=== PATIENT | male | born 1955 | race Caucasian/White ===

== ENCOUNTER → 2020-08-06 | Outpatient (CLI) | payer BC ==
[~2020-08-06] MED LIST: ALEVE220 MG PO; KEFLEX500 MG; TRAMADOL PO; TYLENOL WITH C1 EACH PO; ULTRACET TABLE1 EACH
== END ==
LOC: WCC 08:37
PROVIDERS: ATTEND Plastic Surgery
DX: I87.311 Chronic venous hypertension (idiopathic) with ulcer of right lower extremity (principal); L97.811 Non-pressure chronic ulcer of other part of right lower leg limited to breakdown of skin; R60.0 Localized edema; I87.2 Venous insufficiency (chronic) (peripheral); G89.29 Other chronic pain; E66.3 Overweight; G25.81 Restless legs syndrome; G47.33 Obstructive sleep apnea (adult) (pediatric); W18.09XA Striking against other object with subsequent fall, initial encounter

== ENCOUNTER → 2020-08-08 | Outpatient (CLI) | payer BC | LOC: WCC 08:28 | PROVIDERS: ATTEND Plastic Surgery | DX: I87.311 Chronic venous hypertension (idiopathic) with ulcer of right lower extremity (principal); L97.811 Non-pressure chronic ulcer of other part of right lower leg limited to breakdown of skin; R60.0 Localized edema; I87.2 Venous insufficiency (chronic) (peripheral); G89.29 Other chronic pain; G47.33 Obstructive sleep apnea (adult) (pediatric); G25.81 Restless legs syndrome; E66.3 Overweight; E03.9 Hypothyroidism, unspecified; W18.09XA Striking against other object with subsequent fall, initial encounter ==

== ENCOUNTER → 2020-08-10 | Outpatient (CLI) | payer BC | LOC: WCC 08:23 | PROVIDERS: ATTEND Plastic Surgery | DX: I87.311 Chronic venous hypertension (idiopathic) with ulcer of right lower extremity (principal); L97.811 Non-pressure chronic ulcer of other part of right lower leg limited to breakdown of skin; I87.2 Venous insufficiency (chronic) (peripheral); R60.0 Localized edema; G89.29 Other chronic pain; E03.9 Hypothyroidism, unspecified; G47.33 Obstructive sleep apnea (adult) (pediatric); G25.81 Restless legs syndrome; E66.3 Overweight; W18.09XA Striking against other object with subsequent fall, initial encounter ==

== ENCOUNTER → 2020-08-13 | Outpatient (CLI) | payer BC | LOC: WCC 09:05 | PROVIDERS: ATTEND Plastic Surgery | DX: I87.311 Chronic venous hypertension (idiopathic) with ulcer of right lower extremity (principal); L97.811 Non-pressure chronic ulcer of other part of right lower leg limited to breakdown of skin; I87.2 Venous insufficiency (chronic) (peripheral); R60.0 Localized edema; G89.29 Other chronic pain; G47.33 Obstructive sleep apnea (adult) (pediatric); G25.81 Restless legs syndrome; E66.3 Overweight; W18.09XA Striking against other object with subsequent fall, initial encounter | CPT/HCPCS: 87071; 87075; 87186; 87205 ==

== ENCOUNTER → 2020-08-15 | Outpatient (CLI) | payer BC | LOC: WCC 08:21 | PROVIDERS: ATTEND Plastic Surgery | DX: I87.311 Chronic venous hypertension (idiopathic) with ulcer of right lower extremity (principal); L97.811 Non-pressure chronic ulcer of other part of right lower leg limited to breakdown of skin; I87.2 Venous insufficiency (chronic) (peripheral); R60.0 Localized edema; G89.29 Other chronic pain; E03.9 Hypothyroidism, unspecified; G47.33 Obstructive sleep apnea (adult) (pediatric); G25.81 Restless legs syndrome; E66.3 Overweight; W18.09XA Striking against other object with subsequent fall, initial encounter ==

== ENCOUNTER → 2020-08-22 | Outpatient (CLI) | payer BC ==
[~2020-08-22] MED LIST changes: +LIDOCAINE VISC 2% SOLN 15 ML UDC ONE; +LIDOCAINE/PRILOCAINE 2.5-2.5% KIT ONE; +MINERAL OIL/PETROLAT/GLYCERI 6OZ BTL ONE; +TRYPSIN/BALSAM PERU/CASTOR OIL ONE
== END ==
LOC: WCC 09:53
PROVIDERS: ATTEND Plastic Surgery
DX: I87.311 Chronic venous hypertension (idiopathic) with ulcer of right lower extremity (principal); L97.811 Non-pressure chronic ulcer of other part of right lower leg limited to breakdown of skin; I87.2 Venous insufficiency (chronic) (peripheral); R60.0 Localized edema; G89.29 Other chronic pain; A49.02 Methicillin resistant Staphylococcus aureus infection, unspecified site; G47.33 Obstructive sleep apnea (adult) (pediatric); G25.81 Restless legs syndrome; E66.3 Overweight; E03.9 Hypothyroidism, unspecified; W18.09XA Striking against other object with subsequent fall, initial encounter

== ENCOUNTER → 2020-08-24 | Outpatient (CLI) | payer BC ==
[~2020-08-24] MED LIST changes: -LIDOCAINE VISC 2% SOLN 15 ML UDC ONE; -LIDOCAINE/PRILOCAINE 2.5-2.5% KIT ONE; -MINERAL OIL/PETROLAT/GLYCERI 6OZ BTL ONE; -TRYPSIN/BALSAM PERU/CASTOR OIL ONE
== END ==
LOC: WCC 07:58
PROVIDERS: ATTEND Plastic Surgery
DX: I87.311 Chronic venous hypertension (idiopathic) with ulcer of right lower extremity (principal); L97.811 Non-pressure chronic ulcer of other part of right lower leg limited to breakdown of skin; I87.2 Venous insufficiency (chronic) (peripheral); R60.0 Localized edema; G89.29 Other chronic pain; A49.02 Methicillin resistant Staphylococcus aureus infection, unspecified site; G47.33 Obstructive sleep apnea (adult) (pediatric); G25.81 Restless legs syndrome; E66.3 Overweight; E03.9 Hypothyroidism, unspecified; W18.09XA Striking against other object with subsequent fall, initial encounter

== ENCOUNTER → 2020-08-27 | Outpatient (CLI) | payer BC | LOC: WCC 14:14 | PROVIDERS: ATTEND Plastic Surgery | DX: I87.311 Chronic venous hypertension (idiopathic) with ulcer of right lower extremity (principal); L97.811 Non-pressure chronic ulcer of other part of right lower leg limited to breakdown of skin; I87.2 Venous insufficiency (chronic) (peripheral); R60.0 Localized edema; G89.29 Other chronic pain; A49.02 Methicillin resistant Staphylococcus aureus infection, unspecified site; G47.33 Obstructive sleep apnea (adult) (pediatric); G25.81 Restless legs syndrome; E03.9 Hypothyroidism, unspecified; E66.3 Overweight; W18.09XA Striking against other object with subsequent fall, initial encounter ==

== ENCOUNTER → 2020-08-29 | Outpatient (CLI) | payer BC | LOC: WCC 08:27 | PROVIDERS: ATTEND Plastic Surgery | DX: I87.311 Chronic venous hypertension (idiopathic) with ulcer of right lower extremity (principal); L97.811 Non-pressure chronic ulcer of other part of right lower leg limited to breakdown of skin; R60.0 Localized edema; G89.29 Other chronic pain; I87.2 Venous insufficiency (chronic) (peripheral); G47.33 Obstructive sleep apnea (adult) (pediatric); G25.81 Restless legs syndrome; E03.9 Hypothyroidism, unspecified; A49.02 Methicillin resistant Staphylococcus aureus infection, unspecified site; E66.3 Overweight; W18.09XA Striking against other object with subsequent fall, initial encounter ==

== ENCOUNTER → 2020-08-31 | Outpatient (CLI) | payer BC | LOC: WCC 09:28 | PROVIDERS: ATTEND Plastic Surgery | DX: I87.311 Chronic venous hypertension (idiopathic) with ulcer of right lower extremity (principal); L97.811 Non-pressure chronic ulcer of other part of right lower leg limited to breakdown of skin; I87.2 Venous insufficiency (chronic) (peripheral); R60.0 Localized edema; G89.29 Other chronic pain; A49.02 Methicillin resistant Staphylococcus aureus infection, unspecified site; G25.81 Restless legs syndrome; G47.33 Obstructive sleep apnea (adult) (pediatric); E03.9 Hypothyroidism, unspecified; E66.3 Overweight; W18.09XA Striking against other object with subsequent fall, initial encounter ==

== ENCOUNTER → 2020-09-03 | Outpatient (CLI) | payer BC | LOC: WCC 08:52 | PROVIDERS: ATTEND Plastic Surgery | DX: I87.311 Chronic venous hypertension (idiopathic) with ulcer of right lower extremity (principal); L97.811 Non-pressure chronic ulcer of other part of right lower leg limited to breakdown of skin; I87.2 Venous insufficiency (chronic) (peripheral); R60.0 Localized edema; G89.29 Other chronic pain; A49.02 Methicillin resistant Staphylococcus aureus infection, unspecified site; G47.33 Obstructive sleep apnea (adult) (pediatric); E03.9 Hypothyroidism, unspecified; G25.81 Restless legs syndrome; E66.3 Overweight; W18.09XA Striking against other object with subsequent fall, initial encounter ==

== ENCOUNTER → 2020-09-05 | Outpatient (CLI) | payer BC | LOC: WCC 08:15 | PROVIDERS: ATTEND Plastic Surgery | DX: I87.311 Chronic venous hypertension (idiopathic) with ulcer of right lower extremity (principal); L97.811 Non-pressure chronic ulcer of other part of right lower leg limited to breakdown of skin; I87.2 Venous insufficiency (chronic) (peripheral); R60.0 Localized edema; G89.29 Other chronic pain; G47.33 Obstructive sleep apnea (adult) (pediatric); E03.9 Hypothyroidism, unspecified; G25.81 Restless legs syndrome; E66.3 Overweight; A49.02 Methicillin resistant Staphylococcus aureus infection, unspecified site; W18.09XA Striking against other object with subsequent fall, initial encounter ==

== ENCOUNTER → 2020-09-07 | Outpatient (CLI) | payer BC | LOC: WCC 08:55 | PROVIDERS: ATTEND Plastic Surgery | DX: I87.311 Chronic venous hypertension (idiopathic) with ulcer of right lower extremity (principal); L97.811 Non-pressure chronic ulcer of other part of right lower leg limited to breakdown of skin; I87.2 Venous insufficiency (chronic) (peripheral); R60.0 Localized edema; G89.29 Other chronic pain; A49.02 Methicillin resistant Staphylococcus aureus infection, unspecified site; G47.33 Obstructive sleep apnea (adult) (pediatric); G25.81 Restless legs syndrome; E66.3 Overweight; E03.9 Hypothyroidism, unspecified; W18.09XA Striking against other object with subsequent fall, initial encounter ==

== ENCOUNTER → 2020-09-10 | Outpatient (CLI) | payer BC | LOC: WCC 08:20 | PROVIDERS: ATTEND Plastic Surgery | DX: I87.311 Chronic venous hypertension (idiopathic) with ulcer of right lower extremity (principal); L97.811 Non-pressure chronic ulcer of other part of right lower leg limited to breakdown of skin; R60.0 Localized edema; I87.2 Venous insufficiency (chronic) (peripheral); G89.29 Other chronic pain; G47.33 Obstructive sleep apnea (adult) (pediatric); A49.02 Methicillin resistant Staphylococcus aureus infection, unspecified site; G25.81 Restless legs syndrome; E66.3 Overweight; E03.9 Hypothyroidism, unspecified; W18.09XA Striking against other object with subsequent fall, initial encounter ==

== ENCOUNTER → 2020-09-12 | Outpatient (CLI) | payer BC | LOC: WCC 08:41 | PROVIDERS: ATTEND Plastic Surgery | DX: I87.311 Chronic venous hypertension (idiopathic) with ulcer of right lower extremity (principal); L97.811 Non-pressure chronic ulcer of other part of right lower leg limited to breakdown of skin; I87.2 Venous insufficiency (chronic) (peripheral); R60.0 Localized edema; G89.29 Other chronic pain; A49.02 Methicillin resistant Staphylococcus aureus infection, unspecified site; G47.33 Obstructive sleep apnea (adult) (pediatric); E03.9 Hypothyroidism, unspecified; G25.81 Restless legs syndrome; E66.3 Overweight; W18.09XA Striking against other object with subsequent fall, initial encounter ==

== ENCOUNTER → 2020-09-14 | Outpatient (CLI) | payer BC | LOC: WCC 08:16 | PROVIDERS: ATTEND Plastic Surgery | DX: I87.311 Chronic venous hypertension (idiopathic) with ulcer of right lower extremity (principal); L97.811 Non-pressure chronic ulcer of other part of right lower leg limited to breakdown of skin; I87.2 Venous insufficiency (chronic) (peripheral); R60.0 Localized edema; G89.29 Other chronic pain; E03.9 Hypothyroidism, unspecified; A49.02 Methicillin resistant Staphylococcus aureus infection, unspecified site; G47.33 Obstructive sleep apnea (adult) (pediatric); G25.81 Restless legs syndrome; E66.3 Overweight; W18.09XA Striking against other object with subsequent fall, initial encounter ==

== ENCOUNTER → 2020-09-17 | Outpatient (CLI) | payer BC | LOC: WCC 10:11 | PROVIDERS: ATTEND Plastic Surgery | DX: I87.311 Chronic venous hypertension (idiopathic) with ulcer of right lower extremity (principal); L97.811 Non-pressure chronic ulcer of other part of right lower leg limited to breakdown of skin; I87.2 Venous insufficiency (chronic) (peripheral); R60.0 Localized edema; G89.29 Other chronic pain; G47.33 Obstructive sleep apnea (adult) (pediatric); E03.9 Hypothyroidism, unspecified; A49.02 Methicillin resistant Staphylococcus aureus infection, unspecified site; G25.81 Restless legs syndrome; E66.3 Overweight; W18.09XA Striking against other object with subsequent fall, initial encounter ==

== ENCOUNTER → 2020-09-19 | Outpatient (CLI) | payer BC | LOC: WCC 09:22 | PROVIDERS: ATTEND Plastic Surgery | DX: I87.311 Chronic venous hypertension (idiopathic) with ulcer of right lower extremity (principal); L97.811 Non-pressure chronic ulcer of other part of right lower leg limited to breakdown of skin; I87.2 Venous insufficiency (chronic) (peripheral); R60.0 Localized edema; G89.29 Other chronic pain; A49.02 Methicillin resistant Staphylococcus aureus infection, unspecified site; G47.33 Obstructive sleep apnea (adult) (pediatric); G25.81 Restless legs syndrome; E66.3 Overweight; E03.9 Hypothyroidism, unspecified; W18.09XA Striking against other object with subsequent fall, initial encounter ==

== ENCOUNTER → 2020-09-21 | Outpatient (CLI) | payer BC | LOC: WCC 08:11 | PROVIDERS: ATTEND Plastic Surgery | DX: I87.311 Chronic venous hypertension (idiopathic) with ulcer of right lower extremity (principal); L97.811 Non-pressure chronic ulcer of other part of right lower leg limited to breakdown of skin; R60.0 Localized edema; A49.02 Methicillin resistant Staphylococcus aureus infection, unspecified site; G47.33 Obstructive sleep apnea (adult) (pediatric); E66.3 Overweight; E03.9 Hypothyroidism, unspecified; W18.09XA Striking against other object with subsequent fall, initial encounter ==

== ENCOUNTER → 2020-09-24 | Outpatient (CLI) | payer BC | LOC: WCC 08:24 | PROVIDERS: ATTEND Plastic Surgery | DX: I87.311 Chronic venous hypertension (idiopathic) with ulcer of right lower extremity (principal); L97.811 Non-pressure chronic ulcer of other part of right lower leg limited to breakdown of skin; R60.0 Localized edema; I87.2 Venous insufficiency (chronic) (peripheral); G89.29 Other chronic pain; A49.02 Methicillin resistant Staphylococcus aureus infection, unspecified site; E03.9 Hypothyroidism, unspecified; G47.33 Obstructive sleep apnea (adult) (pediatric); G25.81 Restless legs syndrome; E66.3 Overweight; W18.09XA Striking against other object with subsequent fall, initial encounter ==

== ENCOUNTER → 2020-09-26 | Outpatient (CLI) | payer BC | LOC: WCC 08:11 | PROVIDERS: ATTEND Plastic Surgery | DX: I87.311 Chronic venous hypertension (idiopathic) with ulcer of right lower extremity (principal); L97.811 Non-pressure chronic ulcer of other part of right lower leg limited to breakdown of skin; I87.2 Venous insufficiency (chronic) (peripheral); R60.0 Localized edema; G89.29 Other chronic pain; E03.9 Hypothyroidism, unspecified; A49.02 Methicillin resistant Staphylococcus aureus infection, unspecified site; G47.33 Obstructive sleep apnea (adult) (pediatric); G25.81 Restless legs syndrome; E66.3 Overweight; W18.09XA Striking against other object with subsequent fall, initial encounter ==

== ENCOUNTER → 2020-09-28 | Outpatient (CLI) | payer BC | LOC: WCC 08:32 | PROVIDERS: ATTEND Plastic Surgery | DX: I87.311 Chronic venous hypertension (idiopathic) with ulcer of right lower extremity (principal); L97.811 Non-pressure chronic ulcer of other part of right lower leg limited to breakdown of skin; A49.02 Methicillin resistant Staphylococcus aureus infection, unspecified site; R60.0 Localized edema; W18.09XA Striking against other object with subsequent fall, initial encounter; G47.33 Obstructive sleep apnea (adult) (pediatric); I87.2 Venous insufficiency (chronic) (peripheral); G89.29 Other chronic pain; G25.81 Restless legs syndrome; E66.3 Overweight; E03.9 Hypothyroidism, unspecified ==

== ENCOUNTER → 2020-10-01 | Outpatient (CLI) | payer BC | LOC: WCC 09:02 | PROVIDERS: ATTEND Plastic Surgery | DX: I87.311 Chronic venous hypertension (idiopathic) with ulcer of right lower extremity (principal); L97.811 Non-pressure chronic ulcer of other part of right lower leg limited to breakdown of skin; I87.2 Venous insufficiency (chronic) (peripheral); R60.0 Localized edema; G89.29 Other chronic pain; A49.02 Methicillin resistant Staphylococcus aureus infection, unspecified site; G47.33 Obstructive sleep apnea (adult) (pediatric); G25.81 Restless legs syndrome; E66.3 Overweight; E03.9 Hypothyroidism, unspecified; W18.09XA Striking against other object with subsequent fall, initial encounter ==

== ENCOUNTER → 2020-10-03 | Outpatient (CLI) | payer BC | LOC: WCC 08:29 | PROVIDERS: ATTEND Plastic Surgery | DX: I87.311 Chronic venous hypertension (idiopathic) with ulcer of right lower extremity (principal); L97.811 Non-pressure chronic ulcer of other part of right lower leg limited to breakdown of skin; I87.2 Venous insufficiency (chronic) (peripheral); R60.0 Localized edema; G89.29 Other chronic pain; A49.02 Methicillin resistant Staphylococcus aureus infection, unspecified site; W18.09XA Striking against other object with subsequent fall, initial encounter; G47.33 Obstructive sleep apnea (adult) (pediatric); E03.9 Hypothyroidism, unspecified; G25.81 Restless legs syndrome; E66.3 Overweight ==

== ENCOUNTER → 2020-10-05 | Outpatient (CLI) | payer BC | LOC: WCC 08:54 | PROVIDERS: ATTEND Plastic Surgery | DX: I87.311 Chronic venous hypertension (idiopathic) with ulcer of right lower extremity (principal); L97.811 Non-pressure chronic ulcer of other part of right lower leg limited to breakdown of skin; I87.2 Venous insufficiency (chronic) (peripheral); R60.0 Localized edema; G89.29 Other chronic pain; A49.02 Methicillin resistant Staphylococcus aureus infection, unspecified site; G47.33 Obstructive sleep apnea (adult) (pediatric); G25.81 Restless legs syndrome; E66.3 Overweight; E03.9 Hypothyroidism, unspecified; W18.09XA Striking against other object with subsequent fall, initial encounter ==

== ENCOUNTER → 2020-10-08 | Outpatient (CLI) | payer BC | LOC: WCC 08:38 | PROVIDERS: ATTEND Plastic Surgery | DX: I87.311 Chronic venous hypertension (idiopathic) with ulcer of right lower extremity (principal); L97.811 Non-pressure chronic ulcer of other part of right lower leg limited to breakdown of skin; I87.2 Venous insufficiency (chronic) (peripheral); R60.0 Localized edema; G89.29 Other chronic pain; A49.02 Methicillin resistant Staphylococcus aureus infection, unspecified site; E03.9 Hypothyroidism, unspecified; E66.3 Overweight; G25.81 Restless legs syndrome; G47.33 Obstructive sleep apnea (adult) (pediatric); W18.09XA Striking against other object with subsequent fall, initial encounter ==

== ENCOUNTER → 2020-10-10 | Outpatient (CLI) | payer BC | LOC: WCC 08:42 | PROVIDERS: ATTEND Plastic Surgery | DX: I87.311 Chronic venous hypertension (idiopathic) with ulcer of right lower extremity (principal); L97.811 Non-pressure chronic ulcer of other part of right lower leg limited to breakdown of skin; I87.2 Venous insufficiency (chronic) (peripheral); R60.0 Localized edema; G89.29 Other chronic pain; A49.02 Methicillin resistant Staphylococcus aureus infection, unspecified site; G47.33 Obstructive sleep apnea (adult) (pediatric); G25.81 Restless legs syndrome; E66.3 Overweight; E03.9 Hypothyroidism, unspecified; W18.09XA Striking against other object with subsequent fall, initial encounter ==

== ENCOUNTER → 2020-10-12 | Outpatient (CLI) | payer BC | LOC: WCC 09:14 | PROVIDERS: ATTEND Plastic Surgery | DX: I87.311 Chronic venous hypertension (idiopathic) with ulcer of right lower extremity (principal); L97.811 Non-pressure chronic ulcer of other part of right lower leg limited to breakdown of skin; I87.2 Venous insufficiency (chronic) (peripheral); R60.0 Localized edema; G89.29 Other chronic pain; A49.02 Methicillin resistant Staphylococcus aureus infection, unspecified site; G47.33 Obstructive sleep apnea (adult) (pediatric); G25.81 Restless legs syndrome; E66.3 Overweight; E03.9 Hypothyroidism, unspecified; W18.09XA Striking against other object with subsequent fall, initial encounter ==

== ENCOUNTER → 2020-10-15 | Outpatient (CLI) | payer BC | LOC: WCC 08:18 | PROVIDERS: ATTEND Plastic Surgery | DX: I87.311 Chronic venous hypertension (idiopathic) with ulcer of right lower extremity (principal); L97.811 Non-pressure chronic ulcer of other part of right lower leg limited to breakdown of skin; I87.2 Venous insufficiency (chronic) (peripheral); R60.0 Localized edema; G89.29 Other chronic pain; A49.02 Methicillin resistant Staphylococcus aureus infection, unspecified site; G47.33 Obstructive sleep apnea (adult) (pediatric); E03.9 Hypothyroidism, unspecified; G25.81 Restless legs syndrome; E66.3 Overweight; W18.09XA Striking against other object with subsequent fall, initial encounter ==

== ENCOUNTER → 2020-10-17 | Outpatient (CLI) | payer BC | LOC: WCC 08:33 | PROVIDERS: ATTEND Plastic Surgery | DX: I87.311 Chronic venous hypertension (idiopathic) with ulcer of right lower extremity (principal); L97.811 Non-pressure chronic ulcer of other part of right lower leg limited to breakdown of skin; R60.0 Localized edema ==

== ENCOUNTER → 2020-10-19 | Outpatient (CLI) | payer BC | LOC: WCC 09:43 | PROVIDERS: ATTEND Plastic Surgery | DX: I87.311 Chronic venous hypertension (idiopathic) with ulcer of right lower extremity (principal); L97.811 Non-pressure chronic ulcer of other part of right lower leg limited to breakdown of skin; R60.0 Localized edema ==

== ENCOUNTER → 2020-10-23 | Outpatient (CLI) | payer BC | LOC: WCC 08:38 | PROVIDERS: ATTEND Plastic Surgery | DX: I87.311 Chronic venous hypertension (idiopathic) with ulcer of right lower extremity (principal); L97.811 Non-pressure chronic ulcer of other part of right lower leg limited to breakdown of skin; I87.2 Venous insufficiency (chronic) (peripheral); R60.0 Localized edema; G89.29 Other chronic pain; A49.02 Methicillin resistant Staphylococcus aureus infection, unspecified site; G47.33 Obstructive sleep apnea (adult) (pediatric); E03.9 Hypothyroidism, unspecified; G25.81 Restless legs syndrome; E66.3 Overweight; W18.09XA Striking against other object with subsequent fall, initial encounter ==

== ENCOUNTER → 2020-10-26 | Outpatient (CLI) | payer BC | LOC: WCC 09:24 | PROVIDERS: ATTEND Plastic Surgery | DX: I87.311 Chronic venous hypertension (idiopathic) with ulcer of right lower extremity (principal); L97.811 Non-pressure chronic ulcer of other part of right lower leg limited to breakdown of skin; R60.0 Localized edema ==

== ENCOUNTER → 2020-10-29 | Outpatient (CLI) | payer BC | LOC: WCC 08:59 | PROVIDERS: ATTEND Plastic Surgery | DX: I87.311 Chronic venous hypertension (idiopathic) with ulcer of right lower extremity (principal); L97.811 Non-pressure chronic ulcer of other part of right lower leg limited to breakdown of skin; R60.0 Localized edema ==

== ENCOUNTER → 2020-10-31 | Outpatient (CLI) | payer BC | LOC: WCC 09:32 | PROVIDERS: ATTEND Plastic Surgery | DX: I87.311 Chronic venous hypertension (idiopathic) with ulcer of right lower extremity (principal); L97.811 Non-pressure chronic ulcer of other part of right lower leg limited to breakdown of skin; R60.0 Localized edema ==

== ENCOUNTER → 2020-11-02 | Outpatient (CLI) | payer BC | LOC: WCC 10:45 | PROVIDERS: ATTEND Plastic Surgery | DX: I87.311 Chronic venous hypertension (idiopathic) with ulcer of right lower extremity (principal); L97.811 Non-pressure chronic ulcer of other part of right lower leg limited to breakdown of skin; R60.0 Localized edema ==

== ENCOUNTER → 2020-11-05 | Outpatient (CLI) | payer BC | LOC: WCC 08:23 | PROVIDERS: ATTEND Plastic Surgery | DX: I87.311 Chronic venous hypertension (idiopathic) with ulcer of right lower extremity (principal); L97.811 Non-pressure chronic ulcer of other part of right lower leg limited to breakdown of skin; R60.0 Localized edema ==

== ENCOUNTER → 2020-11-07 | Outpatient (CLI) | payer BC ==
[~2020-11-07] MED LIST changes: +ASPIRIN325 MG PO; +METHADONE HCL5 MG PO; +PERCOCET 10-321 EACH PO; +TIZANIDINE HCL4 MG PO
== END ==
LOC: WCC 08:31
PROVIDERS: ATTEND Plastic Surgery
DX: I87.311 Chronic venous hypertension (idiopathic) with ulcer of right lower extremity (principal); L97.811 Non-pressure chronic ulcer of other part of right lower leg limited to breakdown of skin; R60.0 Localized edema

== ENCOUNTER → 2020-11-09 | Outpatient (CLI) | payer BC ==
[~2020-11-09] MED LIST changes: -ASPIRIN325 MG PO; -METHADONE HCL5 MG PO; -PERCOCET 10-321 EACH PO; -TIZANIDINE HCL4 MG PO
== END ==
LOC: WCC 09:55
PROVIDERS: ATTEND Plastic Surgery
DX: I87.311 Chronic venous hypertension (idiopathic) with ulcer of right lower extremity (principal); L97.811 Non-pressure chronic ulcer of other part of right lower leg limited to breakdown of skin; I87.2 Venous insufficiency (chronic) (peripheral); R60.0 Localized edema; G89.29 Other chronic pain; E03.9 Hypothyroidism, unspecified; G47.33 Obstructive sleep apnea (adult) (pediatric); G25.81 Restless legs syndrome; E66.3 Overweight; A49.02 Methicillin resistant Staphylococcus aureus infection, unspecified site; W18.09XA Striking against other object with subsequent fall, initial encounter

== ENCOUNTER → 2020-11-12 | Outpatient (CLI) | payer BC | LOC: WCC 10:44 | PROVIDERS: ATTEND Plastic Surgery | DX: I87.311 Chronic venous hypertension (idiopathic) with ulcer of right lower extremity (principal); L97.811 Non-pressure chronic ulcer of other part of right lower leg limited to breakdown of skin; I87.2 Venous insufficiency (chronic) (peripheral); A49.02 Methicillin resistant Staphylococcus aureus infection, unspecified site; R60.0 Localized edema; G89.29 Other chronic pain; E03.9 Hypothyroidism, unspecified; G47.33 Obstructive sleep apnea (adult) (pediatric); G25.81 Restless legs syndrome; E66.3 Overweight; W18.09XA Striking against other object with subsequent fall, initial encounter ==

== ENCOUNTER → 2020-11-14 | Outpatient (CLI) | payer BC | LOC: WCC 08:10 | PROVIDERS: ATTEND Plastic Surgery | DX: I87.311 Chronic venous hypertension (idiopathic) with ulcer of right lower extremity (principal); L97.811 Non-pressure chronic ulcer of other part of right lower leg limited to breakdown of skin; I87.2 Venous insufficiency (chronic) (peripheral); R60.0 Localized edema; G89.29 Other chronic pain; E03.9 Hypothyroidism, unspecified; G47.33 Obstructive sleep apnea (adult) (pediatric); A49.02 Methicillin resistant Staphylococcus aureus infection, unspecified site; G25.81 Restless legs syndrome; E66.3 Overweight; W18.09XA Striking against other object with subsequent fall, initial encounter ==

== ENCOUNTER → 2020-11-19 | Outpatient (CLI) | payer BC | LOC: WCC 14:30 | PROVIDERS: ATTEND Plastic Surgery | DX: I87.311 Chronic venous hypertension (idiopathic) with ulcer of right lower extremity (principal); L97.811 Non-pressure chronic ulcer of other part of right lower leg limited to breakdown of skin; I87.2 Venous insufficiency (chronic) (peripheral); R60.0 Localized edema; G89.29 Other chronic pain; G47.33 Obstructive sleep apnea (adult) (pediatric); A49.02 Methicillin resistant Staphylococcus aureus infection, unspecified site; G25.81 Restless legs syndrome; E66.3 Overweight; E03.9 Hypothyroidism, unspecified; W18.09XA Striking against other object with subsequent fall, initial encounter ==

== ENCOUNTER → 2020-11-21 | Outpatient (CLI) | payer BC | LOC: WCC 08:51 | PROVIDERS: ATTEND Plastic Surgery | DX: I87.311 Chronic venous hypertension (idiopathic) with ulcer of right lower extremity (principal); L97.811 Non-pressure chronic ulcer of other part of right lower leg limited to breakdown of skin; I87.2 Venous insufficiency (chronic) (peripheral); R60.0 Localized edema; G89.29 Other chronic pain; G47.33 Obstructive sleep apnea (adult) (pediatric); E03.9 Hypothyroidism, unspecified; A49.02 Methicillin resistant Staphylococcus aureus infection, unspecified site; G25.81 Restless legs syndrome; E66.3 Overweight; W18.09XA Striking against other object with subsequent fall, initial encounter ==

== ENCOUNTER → 2020-11-23 | Outpatient (CLI) | payer BC | LOC: WCC 11:25 | PROVIDERS: ATTEND Plastic Surgery | DX: I87.311 Chronic venous hypertension (idiopathic) with ulcer of right lower extremity (principal); L97.811 Non-pressure chronic ulcer of other part of right lower leg limited to breakdown of skin; I87.2 Venous insufficiency (chronic) (peripheral); R60.0 Localized edema; G89.29 Other chronic pain; E03.9 Hypothyroidism, unspecified; A49.02 Methicillin resistant Staphylococcus aureus infection, unspecified site; G47.33 Obstructive sleep apnea (adult) (pediatric); G25.81 Restless legs syndrome; E66.3 Overweight; W18.09XA Striking against other object with subsequent fall, initial encounter ==

== ENCOUNTER → 2020-11-26 | Outpatient (CLI) | payer BC | LOC: WCC 10:22 | PROVIDERS: ATTEND Plastic Surgery | DX: I87.311 Chronic venous hypertension (idiopathic) with ulcer of right lower extremity (principal); L97.811 Non-pressure chronic ulcer of other part of right lower leg limited to breakdown of skin; I87.2 Venous insufficiency (chronic) (peripheral); R60.0 Localized edema; G89.29 Other chronic pain; E03.9 Hypothyroidism, unspecified; G47.33 Obstructive sleep apnea (adult) (pediatric); A49.02 Methicillin resistant Staphylococcus aureus infection, unspecified site; E66.3 Overweight; G25.81 Restless legs syndrome; W18.09XA Striking against other object with subsequent fall, initial encounter ==

== ENCOUNTER → 2020-11-28 | Outpatient (CLI) | payer BC | LOC: WCC 09:57 | PROVIDERS: ATTEND Plastic Surgery | DX: I87.311 Chronic venous hypertension (idiopathic) with ulcer of right lower extremity (principal); L97.811 Non-pressure chronic ulcer of other part of right lower leg limited to breakdown of skin; I87.2 Venous insufficiency (chronic) (peripheral); R60.0 Localized edema; G89.29 Other chronic pain; E03.9 Hypothyroidism, unspecified; G47.33 Obstructive sleep apnea (adult) (pediatric); G25.81 Restless legs syndrome; E66.3 Overweight; W18.09XA Striking against other object with subsequent fall, initial encounter ==

== ENCOUNTER → 2020-11-30 | Outpatient (CLI) | payer BC | LOC: WCC 08:36 | PROVIDERS: ATTEND Plastic Surgery | DX: I87.311 Chronic venous hypertension (idiopathic) with ulcer of right lower extremity (principal); L97.811 Non-pressure chronic ulcer of other part of right lower leg limited to breakdown of skin; I87.2 Venous insufficiency (chronic) (peripheral); R60.0 Localized edema; G89.29 Other chronic pain; E03.9 Hypothyroidism, unspecified; G47.33 Obstructive sleep apnea (adult) (pediatric); G25.81 Restless legs syndrome; E66.3 Overweight; W18.09XA Striking against other object with subsequent fall, initial encounter ==

== ENCOUNTER → 2020-12-03 | Outpatient (CLI) | payer BC | LOC: WCC 10:00 | PROVIDERS: ATTEND Plastic Surgery | DX: I87.311 Chronic venous hypertension (idiopathic) with ulcer of right lower extremity (principal); L97.811 Non-pressure chronic ulcer of other part of right lower leg limited to breakdown of skin; I87.2 Venous insufficiency (chronic) (peripheral); R60.0 Localized edema; G89.29 Other chronic pain; E03.9 Hypothyroidism, unspecified; G47.33 Obstructive sleep apnea (adult) (pediatric); G25.81 Restless legs syndrome; E66.3 Overweight; W18.09XA Striking against other object with subsequent fall, initial encounter ==

== ENCOUNTER → 2020-12-05 | Outpatient (CLI) | payer BC ==
[~2020-12-05] MED LIST changes: +ASPIRIN325 MG PO; +METHADONE HCL5 MG PO; +PERCOCET 10-321 EACH PO; +TIZANIDINE HCL4 MG PO
== END ==
LOC: WCC 08:43
PROVIDERS: ATTEND Plastic Surgery
DX: I87.311 Chronic venous hypertension (idiopathic) with ulcer of right lower extremity (principal); L97.811 Non-pressure chronic ulcer of other part of right lower leg limited to breakdown of skin; I87.2 Venous insufficiency (chronic) (peripheral); R60.0 Localized edema; G89.29 Other chronic pain; E03.9 Hypothyroidism, unspecified; G47.33 Obstructive sleep apnea (adult) (pediatric); G25.81 Restless legs syndrome; E66.3 Overweight; W18.09XA Striking against other object with subsequent fall, initial encounter

== ENCOUNTER → 2020-12-07 | Outpatient (CLI) | payer BC | LOC: WCC 09:45 | PROVIDERS: ATTEND Plastic Surgery | DX: I87.311 Chronic venous hypertension (idiopathic) with ulcer of right lower extremity (principal); L97.811 Non-pressure chronic ulcer of other part of right lower leg limited to breakdown of skin; I87.2 Venous insufficiency (chronic) (peripheral); R60.0 Localized edema; G89.29 Other chronic pain; E03.9 Hypothyroidism, unspecified; G47.33 Obstructive sleep apnea (adult) (pediatric); G25.81 Restless legs syndrome; E66.3 Overweight; W18.09XA Striking against other object with subsequent fall, initial encounter ==

== ENCOUNTER → 2020-12-10 | Outpatient (CLI) | payer BC | LOC: WCC 08:55 | PROVIDERS: ATTEND Plastic Surgery | DX: I87.311 Chronic venous hypertension (idiopathic) with ulcer of right lower extremity (principal); L97.811 Non-pressure chronic ulcer of other part of right lower leg limited to breakdown of skin; I87.2 Venous insufficiency (chronic) (peripheral); R60.0 Localized edema; G89.29 Other chronic pain; G47.33 Obstructive sleep apnea (adult) (pediatric); G25.81 Restless legs syndrome; E03.9 Hypothyroidism, unspecified; E66.3 Overweight; W18.09XA Striking against other object with subsequent fall, initial encounter ==

== ENCOUNTER → 2020-12-13 | Day surgery (SDC) | payer BC ==
[~2020-12-13] MED LIST changes: +FENTANYL CITRATE/PF 100MCG/2 ML INJ ONE; +KETOROLAC TROMETHAMINE 30 MG/ML VIAL ONE; +LIDOCAINE 1% W/EPINEPHRINE 20 ML VIAL ONE; +LIDOCAINE HCL 2% LOCAL INJ 5 ML SDV VIAL INJ ONE; +MIDAZOLAM HCL 2 MG/2 ML VIAL ONE; +MINERAL OIL 30 ML CUP ONE; +MUPIROCIN 2% OINT 22 GM TUBE ONE; +Morphine 10mg syringe 10 MG/ML INJ ONE; +ONDANSETRON HCL INJ 2MG/ML 2ML 2 MG/ML VIAL ONE; +POVIDONE IODINE 0.05% 0.05 % ML PO ONE; +PROPOFOL IV EMULSION 10 MG/ML 20 ML VIAL ONE; +SEVOFLURANE INHAL SOLN 250 ML PEN BTL ONE; +SODIUM CHLORIDE 0.9% 50ML 50 ML ONE
[2020-12-13 11:40] VITALS: BP 125/84
== END | disposition home or self-care (01) ==
LOC: OR 07:19
PROVIDERS: ATTEND Plastic Surgery
DX: S81.801A Unspecified open wound, right lower leg, initial encounter (principal); G47.33 Obstructive sleep apnea (adult) (pediatric); X58.XXXA Exposure to other specified factors, initial encounter; Z01.810 Encounter for preprocedural cardiovascular examination; Z01.812 Encounter for preprocedural laboratory examination; Z20.822 Contact with and (suspected) exposure to COVID-19; Z79.82 Long term (current) use of aspirin; Z86.73 Personal history of transient ischemic attack (TIA), and cerebral infarction without residual deficits
CPT/HCPCS: 15002; 15100; 93005; J0690; J1885; J2001; J2250; J2270; J2405; J2704; J3010; U0002; 97605; 99251

== ENCOUNTER → 2020-12-17 | Outpatient (CLI) | payer BC ==
[~2020-12-17] MED LIST changes: -FENTANYL CITRATE/PF 100MCG/2 ML INJ ONE; -KETOROLAC TROMETHAMINE 30 MG/ML VIAL ONE; -LIDOCAINE 1% W/EPINEPHRINE 20 ML VIAL ONE; -LIDOCAINE HCL 2% LOCAL INJ 5 ML SDV VIAL INJ ONE; +LIDOCAINE VISC 2% SOLN 15 ML UDC ONE; -MIDAZOLAM HCL 2 MG/2 ML VIAL ONE; -MINERAL OIL 30 ML CUP ONE; -Morphine 10mg syringe 10 MG/ML INJ ONE; -ONDANSETRON HCL INJ 2MG/ML 2ML 2 MG/ML VIAL ONE; -POVIDONE IODINE 0.05% 0.05 % ML PO ONE; -PROPOFOL IV EMULSION 10 MG/ML 20 ML VIAL ONE; -SEVOFLURANE INHAL SOLN 250 ML PEN BTL ONE; -SODIUM CHLORIDE 0.9% 50ML 50 ML ONE
== END ==
LOC: WCC 08:45
PROVIDERS: ATTEND Plastic Surgery
DX: T86.828 Other complications of skin graft (allograft) (autograft) (principal); T81.89XA Other complications of procedures, not elsewhere classified, initial encounter; Y83.8 Other surgical procedures as the cause of abnormal reaction of the patient, or of later complication, without mention of misadventure at the time of the procedure; I87.311 Chronic venous hypertension (idiopathic) with ulcer of right lower extremity; L97.811 Non-pressure chronic ulcer of other part of right lower leg limited to breakdown of skin; I87.2 Venous insufficiency (chronic) (peripheral); G89.29 Other chronic pain; G47.33 Obstructive sleep apnea (adult) (pediatric); E03.9 Hypothyroidism, unspecified; G25.81 Restless legs syndrome; E66.3 Overweight; W18.09XA Striking against other object with subsequent fall, initial encounter

== ENCOUNTER → 2020-12-24 | Outpatient (CLI) | payer BC ==
[~2020-12-24] MED LIST changes: -LIDOCAINE VISC 2% SOLN 15 ML UDC ONE; -MUPIROCIN 2% OINT 22 GM TUBE ONE
== END ==
LOC: WCC 09:11
PROVIDERS: ATTEND Plastic Surgery
DX: T86.828 Other complications of skin graft (allograft) (autograft) (principal); T81.89XA Other complications of procedures, not elsewhere classified, initial encounter; Y83.8 Other surgical procedures as the cause of abnormal reaction of the patient, or of later complication, without mention of misadventure at the time of the procedure; I87.2 Venous insufficiency (chronic) (peripheral); R60.0 Localized edema; G89.29 Other chronic pain; E03.9 Hypothyroidism, unspecified; G47.33 Obstructive sleep apnea (adult) (pediatric); G25.81 Restless legs syndrome; E66.3 Overweight; W18.09XA Striking against other object with subsequent fall, initial encounter

== ENCOUNTER → 2020-12-27 | Outpatient (CLI) | payer BC | LOC: WCC 10:29 | PROVIDERS: ATTEND Plastic Surgery | DX: T86.828 Other complications of skin graft (allograft) (autograft) (principal); T81.89XA Other complications of procedures, not elsewhere classified, initial encounter; Y83.8 Other surgical procedures as the cause of abnormal reaction of the patient, or of later complication, without mention of misadventure at the time of the procedure; I87.2 Venous insufficiency (chronic) (peripheral); R60.0 Localized edema; S80.821A Blister (nonthermal), right lower leg, initial encounter; G89.29 Other chronic pain; E03.9 Hypothyroidism, unspecified; G47.33 Obstructive sleep apnea (adult) (pediatric); G25.81 Restless legs syndrome; E66.3 Overweight; W18.09XA Striking against other object with subsequent fall, initial encounter ==

== ENCOUNTER → 2020-12-31 | Outpatient (CLI) | payer BC | LOC: WCC 08:32 | PROVIDERS: ATTEND Plastic Surgery | DX: T86.828 Other complications of skin graft (allograft) (autograft) (principal); T81.89XA Other complications of procedures, not elsewhere classified, initial encounter; Y83.8 Other surgical procedures as the cause of abnormal reaction of the patient, or of later complication, without mention of misadventure at the time of the procedure; I87.2 Venous insufficiency (chronic) (peripheral); R60.0 Localized edema; S80.821A Blister (nonthermal), right lower leg, initial encounter; G89.29 Other chronic pain; E03.9 Hypothyroidism, unspecified; G47.33 Obstructive sleep apnea (adult) (pediatric); E66.3 Overweight; G25.81 Restless legs syndrome; W18.09XA Striking against other object with subsequent fall, initial encounter ==

== ENCOUNTER → 2021-01-02 | Outpatient (CLI) | payer BC | LOC: WCC 07:54 | PROVIDERS: ATTEND Plastic Surgery | DX: T86.828 Other complications of skin graft (allograft) (autograft) (principal); Y83.8 Other surgical procedures as the cause of abnormal reaction of the patient, or of later complication, without mention of misadventure at the time of the procedure; I87.2 Venous insufficiency (chronic) (peripheral); R60.0 Localized edema; S80.821A Blister (nonthermal), right lower leg, initial encounter; G89.29 Other chronic pain; E03.9 Hypothyroidism, unspecified; G47.33 Obstructive sleep apnea (adult) (pediatric); G25.81 Restless legs syndrome; E66.3 Overweight; W18.09XA Striking against other object with subsequent fall, initial encounter ==

== ENCOUNTER → 2021-01-04 | Outpatient (CLI) | payer BC | LOC: WCC 10:47 | PROVIDERS: ATTEND Plastic Surgery | DX: T86.828 Other complications of skin graft (allograft) (autograft) (principal); Y83.8 Other surgical procedures as the cause of abnormal reaction of the patient, or of later complication, without mention of misadventure at the time of the procedure; I87.2 Venous insufficiency (chronic) (peripheral); R60.0 Localized edema; G89.29 Other chronic pain; S80.821A Blister (nonthermal), right lower leg, initial encounter; E03.9 Hypothyroidism, unspecified; G47.33 Obstructive sleep apnea (adult) (pediatric); G25.81 Restless legs syndrome; E66.3 Overweight; W18.09XA Striking against other object with subsequent fall, initial encounter ==

== ENCOUNTER → 2021-01-07 | Outpatient (CLI) | payer BC | LOC: WCC 10:32 | PROVIDERS: ATTEND Plastic Surgery | DX: T86.828 Other complications of skin graft (allograft) (autograft) (principal); Y83.8 Other surgical procedures as the cause of abnormal reaction of the patient, or of later complication, without mention of misadventure at the time of the procedure; I87.331 Chronic venous hypertension (idiopathic) with ulcer and inflammation of right lower extremity; L97.811 Non-pressure chronic ulcer of other part of right lower leg limited to breakdown of skin; I87.2 Venous insufficiency (chronic) (peripheral); R60.0 Localized edema; S80.821A Blister (nonthermal), right lower leg, initial encounter; G89.29 Other chronic pain; E03.9 Hypothyroidism, unspecified; G47.33 Obstructive sleep apnea (adult) (pediatric); E66.3 Overweight; G25.81 Restless legs syndrome; W18.09XA Striking against other object with subsequent fall, initial encounter ==

== ENCOUNTER → 2021-01-09 | Outpatient (CLI) | payer BC | LOC: WCC 08:26 | PROVIDERS: ATTEND Plastic Surgery | DX: T86.828 Other complications of skin graft (allograft) (autograft) (principal); Y83.8 Other surgical procedures as the cause of abnormal reaction of the patient, or of later complication, without mention of misadventure at the time of the procedure; I87.331 Chronic venous hypertension (idiopathic) with ulcer and inflammation of right lower extremity; L97.811 Non-pressure chronic ulcer of other part of right lower leg limited to breakdown of skin; I87.2 Venous insufficiency (chronic) (peripheral); R60.0 Localized edema; G89.29 Other chronic pain; E03.9 Hypothyroidism, unspecified; G47.33 Obstructive sleep apnea (adult) (pediatric); G25.81 Restless legs syndrome; E66.3 Overweight; W18.09XA Striking against other object with subsequent fall, initial encounter ==

== ENCOUNTER → 2021-01-14 | Outpatient (CLI) | payer BC | LOC: WCC 09:23 | PROVIDERS: ATTEND Plastic Surgery | DX: T86.828 Other complications of skin graft (allograft) (autograft) (principal); Y83.8 Other surgical procedures as the cause of abnormal reaction of the patient, or of later complication, without mention of misadventure at the time of the procedure; I87.331 Chronic venous hypertension (idiopathic) with ulcer and inflammation of right lower extremity; L97.811 Non-pressure chronic ulcer of other part of right lower leg limited to breakdown of skin; I87.2 Venous insufficiency (chronic) (peripheral); R60.0 Localized edema; G89.29 Other chronic pain; E03.9 Hypothyroidism, unspecified; G47.33 Obstructive sleep apnea (adult) (pediatric); G25.81 Restless legs syndrome; E66.3 Overweight; W18.09XA Striking against other object with subsequent fall, initial encounter ==

== ENCOUNTER → 2021-01-16 | Outpatient (CLI) | payer BC ==
[~2021-01-16] MED LIST changes: +LIDOCAINE VISC 2% SOLN 15 ML UDC ONE
== END ==
LOC: WCC 10:58
PROVIDERS: ATTEND Plastic Surgery
DX: T86.828 Other complications of skin graft (allograft) (autograft) (principal); Y83.8 Other surgical procedures as the cause of abnormal reaction of the patient, or of later complication, without mention of misadventure at the time of the procedure; L97.811 Non-pressure chronic ulcer of other part of right lower leg limited to breakdown of skin; I87.331 Chronic venous hypertension (idiopathic) with ulcer and inflammation of right lower extremity; I87.2 Venous insufficiency (chronic) (peripheral); R60.0 Localized edema; G89.29 Other chronic pain; E03.9 Hypothyroidism, unspecified; G47.33 Obstructive sleep apnea (adult) (pediatric); G25.81 Restless legs syndrome; E66.3 Overweight; W18.09XA Striking against other object with subsequent fall, initial encounter

== ENCOUNTER → 2021-01-18 | Outpatient (CLI) | payer BC ==
[~2021-01-18] MED LIST changes: -LIDOCAINE VISC 2% SOLN 15 ML UDC ONE
== END ==
LOC: WCC 10:44
PROVIDERS: ATTEND Plastic Surgery
DX: T86.828 Other complications of skin graft (allograft) (autograft) (principal); Y83.8 Other surgical procedures as the cause of abnormal reaction of the patient, or of later complication, without mention of misadventure at the time of the procedure; L97.811 Non-pressure chronic ulcer of other part of right lower leg limited to breakdown of skin; I87.331 Chronic venous hypertension (idiopathic) with ulcer and inflammation of right lower extremity; I87.2 Venous insufficiency (chronic) (peripheral); R60.0 Localized edema; G89.29 Other chronic pain; E03.9 Hypothyroidism, unspecified; G47.33 Obstructive sleep apnea (adult) (pediatric); G25.81 Restless legs syndrome; E66.3 Overweight; W18.09XA Striking against other object with subsequent fall, initial encounter

== ENCOUNTER → 2021-01-21 | Outpatient (CLI) | payer BC | LOC: WCC 11:56 | PROVIDERS: ATTEND Plastic Surgery | DX: T86.828 Other complications of skin graft (allograft) (autograft) (principal); Y83.8 Other surgical procedures as the cause of abnormal reaction of the patient, or of later complication, without mention of misadventure at the time of the procedure; L97.811 Non-pressure chronic ulcer of other part of right lower leg limited to breakdown of skin; I87.331 Chronic venous hypertension (idiopathic) with ulcer and inflammation of right lower extremity; I87.2 Venous insufficiency (chronic) (peripheral); R60.0 Localized edema; G89.29 Other chronic pain; E03.9 Hypothyroidism, unspecified; G47.33 Obstructive sleep apnea (adult) (pediatric); E66.9 Obesity, unspecified; G25.81 Restless legs syndrome; W18.09XA Striking against other object with subsequent fall, initial encounter ==

== ENCOUNTER → 2021-01-23 | Outpatient (CLI) | payer BC | LOC: WCC 11:19 | PROVIDERS: ATTEND Plastic Surgery | DX: T86.828 Other complications of skin graft (allograft) (autograft) (principal); Y83.8 Other surgical procedures as the cause of abnormal reaction of the patient, or of later complication, without mention of misadventure at the time of the procedure; I87.331 Chronic venous hypertension (idiopathic) with ulcer and inflammation of right lower extremity; L97.811 Non-pressure chronic ulcer of other part of right lower leg limited to breakdown of skin; I87.2 Venous insufficiency (chronic) (peripheral); R60.0 Localized edema; G89.29 Other chronic pain; G47.33 Obstructive sleep apnea (adult) (pediatric); G25.81 Restless legs syndrome; E66.3 Overweight; E03.9 Hypothyroidism, unspecified; W18.09XA Striking against other object with subsequent fall, initial encounter ==

== ENCOUNTER → 2021-01-25 | Outpatient (CLI) | payer BC | LOC: WCC 11:56 | PROVIDERS: ATTEND Plastic Surgery | DX: T86.828 Other complications of skin graft (allograft) (autograft) (principal); Y83.8 Other surgical procedures as the cause of abnormal reaction of the patient, or of later complication, without mention of misadventure at the time of the procedure; I87.331 Chronic venous hypertension (idiopathic) with ulcer and inflammation of right lower extremity; L97.811 Non-pressure chronic ulcer of other part of right lower leg limited to breakdown of skin; I87.2 Venous insufficiency (chronic) (peripheral); R60.0 Localized edema; G89.29 Other chronic pain; E03.9 Hypothyroidism, unspecified; G47.33 Obstructive sleep apnea (adult) (pediatric); G25.81 Restless legs syndrome; E66.3 Overweight; W18.09XA Striking against other object with subsequent fall, initial encounter ==

== ENCOUNTER → 2021-01-28 | Outpatient (CLI) | payer BC | LOC: WCC 08:57 | PROVIDERS: ATTEND Plastic Surgery | DX: T86.828 Other complications of skin graft (allograft) (autograft) (principal); Y83.8 Other surgical procedures as the cause of abnormal reaction of the patient, or of later complication, without mention of misadventure at the time of the procedure; I87.331 Chronic venous hypertension (idiopathic) with ulcer and inflammation of right lower extremity; L97.811 Non-pressure chronic ulcer of other part of right lower leg limited to breakdown of skin; I87.2 Venous insufficiency (chronic) (peripheral); R60.0 Localized edema; G89.29 Other chronic pain; E03.9 Hypothyroidism, unspecified; G47.33 Obstructive sleep apnea (adult) (pediatric); G25.81 Restless legs syndrome; E66.3 Overweight; W18.09XA Striking against other object with subsequent fall, initial encounter ==

== ENCOUNTER → 2021-01-30 | Outpatient (CLI) | payer BC | LOC: WCC 10:46 | PROVIDERS: ATTEND Plastic Surgery | DX: T86.828 Other complications of skin graft (allograft) (autograft) (principal); Y83.8 Other surgical procedures as the cause of abnormal reaction of the patient, or of later complication, without mention of misadventure at the time of the procedure; I87.331 Chronic venous hypertension (idiopathic) with ulcer and inflammation of right lower extremity; L97.811 Non-pressure chronic ulcer of other part of right lower leg limited to breakdown of skin; I87.2 Venous insufficiency (chronic) (peripheral); R60.0 Localized edema; G89.29 Other chronic pain; G47.33 Obstructive sleep apnea (adult) (pediatric); E03.9 Hypothyroidism, unspecified; G25.81 Restless legs syndrome; E66.3 Overweight; W18.09XA Striking against other object with subsequent fall, initial encounter ==

== ENCOUNTER → 2021-02-01 | Outpatient (CLI) | payer BC | LOC: WCC 09:36 | PROVIDERS: ATTEND Plastic Surgery | DX: T86.828 Other complications of skin graft (allograft) (autograft) (principal); Y83.8 Other surgical procedures as the cause of abnormal reaction of the patient, or of later complication, without mention of misadventure at the time of the procedure; I87.331 Chronic venous hypertension (idiopathic) with ulcer and inflammation of right lower extremity; L97.811 Non-pressure chronic ulcer of other part of right lower leg limited to breakdown of skin; I87.2 Venous insufficiency (chronic) (peripheral); R60.0 Localized edema; G89.29 Other chronic pain; G47.33 Obstructive sleep apnea (adult) (pediatric); E03.9 Hypothyroidism, unspecified; G25.81 Restless legs syndrome; E66.3 Overweight; W18.09XA Striking against other object with subsequent fall, initial encounter ==

== ENCOUNTER → 2021-02-04 | Outpatient (CLI) | payer BC | LOC: WCC 09:34 | PROVIDERS: ATTEND Plastic Surgery | DX: T86.828 Other complications of skin graft (allograft) (autograft) (principal); L97.811 Non-pressure chronic ulcer of other part of right lower leg limited to breakdown of skin; I87.2 Venous insufficiency (chronic) (peripheral); I87.331 Chronic venous hypertension (idiopathic) with ulcer and inflammation of right lower extremity; R60.0 Localized edema; G89.29 Other chronic pain; E03.9 Hypothyroidism, unspecified; E66.3 Overweight; G25.81 Restless legs syndrome; G47.33 Obstructive sleep apnea (adult) (pediatric); W18.09XA Striking against other object with subsequent fall, initial encounter; Y83.8 Other surgical procedures as the cause of abnormal reaction of the patient, or of later complication, without mention of misadventure at the time of the procedure ==

== ENCOUNTER → 2021-02-07 | Outpatient (CLI) | payer BC | LOC: WCC 12:28 | PROVIDERS: ATTEND Plastic Surgery | DX: T86.828 Other complications of skin graft (allograft) (autograft) (principal); Y83.8 Other surgical procedures as the cause of abnormal reaction of the patient, or of later complication, without mention of misadventure at the time of the procedure; R60.0 Localized edema; I87.2 Venous insufficiency (chronic) (peripheral); G89.29 Other chronic pain; E03.9 Hypothyroidism, unspecified; G47.33 Obstructive sleep apnea (adult) (pediatric); G25.81 Restless legs syndrome; E66.3 Overweight; W18.09XA Striking against other object with subsequent fall, initial encounter ==

== ENCOUNTER → 2021-02-11 | Outpatient (CLI) | payer BC | LOC: WCC 09:43 | PROVIDERS: ATTEND Plastic Surgery | DX: T86.828 Other complications of skin graft (allograft) (autograft) (principal); Y83.8 Other surgical procedures as the cause of abnormal reaction of the patient, or of later complication, without mention of misadventure at the time of the procedure; R60.0 Localized edema; I87.2 Venous insufficiency (chronic) (peripheral); G89.29 Other chronic pain; E03.9 Hypothyroidism, unspecified; G47.33 Obstructive sleep apnea (adult) (pediatric); E66.3 Overweight; G25.81 Restless legs syndrome; W18.09XA Striking against other object with subsequent fall, initial encounter ==

== ENCOUNTER → 2021-02-14 | Outpatient (CLI) | payer BC | LOC: WCC 08:29 | PROVIDERS: ATTEND Plastic Surgery | DX: T86.828 Other complications of skin graft (allograft) (autograft) (principal); Y83.8 Other surgical procedures as the cause of abnormal reaction of the patient, or of later complication, without mention of misadventure at the time of the procedure; I87.2 Venous insufficiency (chronic) (peripheral); R60.0 Localized edema; G89.29 Other chronic pain; G47.33 Obstructive sleep apnea (adult) (pediatric); E03.9 Hypothyroidism, unspecified; G25.81 Restless legs syndrome; E66.3 Overweight; W18.09XA Striking against other object with subsequent fall, initial encounter ==

== ENCOUNTER → 2021-02-18 | Outpatient (CLI) | payer BC ==
[~2021-02-18] MED LIST changes: +COLLAGENASE OINTMENT 30 GM TUBE ONE; +LIDOCAINE VISC 2% SOLN 15 ML UDC ONE; +MUPIROCIN 2% OINT 22 GM TUBE ONE
== END ==
LOC: WCC 16:08
PROVIDERS: ATTEND Plastic Surgery
DX: T86.828 Other complications of skin graft (allograft) (autograft) (principal); Y83.8 Other surgical procedures as the cause of abnormal reaction of the patient, or of later complication, without mention of misadventure at the time of the procedure; I87.2 Venous insufficiency (chronic) (peripheral); R60.0 Localized edema; G89.29 Other chronic pain; E03.9 Hypothyroidism, unspecified; G47.33 Obstructive sleep apnea (adult) (pediatric); E66.3 Overweight; G25.81 Restless legs syndrome; W18.09XA Striking against other object with subsequent fall, initial encounter

== ENCOUNTER → 2021-02-20 | Outpatient (CLI) | payer BC ==
[~2021-02-20] MED LIST changes: -COLLAGENASE OINTMENT 30 GM TUBE ONE; -LIDOCAINE VISC 2% SOLN 15 ML UDC ONE; -MUPIROCIN 2% OINT 22 GM TUBE ONE
== END ==
LOC: WCC 09:24
PROVIDERS: ATTEND Plastic Surgery
DX: T86.828 Other complications of skin graft (allograft) (autograft) (principal); Y83.8 Other surgical procedures as the cause of abnormal reaction of the patient, or of later complication, without mention of misadventure at the time of the procedure; I87.2 Venous insufficiency (chronic) (peripheral); R60.0 Localized edema; G89.29 Other chronic pain; E03.9 Hypothyroidism, unspecified; G47.33 Obstructive sleep apnea (adult) (pediatric); G25.81 Restless legs syndrome; E66.3 Overweight; W18.09XA Striking against other object with subsequent fall, initial encounter

== ENCOUNTER → 2021-02-22 | Outpatient (CLI) | payer BC | LOC: WCC 10:16 | PROVIDERS: ATTEND Plastic Surgery | DX: T86.828 Other complications of skin graft (allograft) (autograft) (principal); Y83.8 Other surgical procedures as the cause of abnormal reaction of the patient, or of later complication, without mention of misadventure at the time of the procedure; I87.2 Venous insufficiency (chronic) (peripheral); R60.0 Localized edema; G89.29 Other chronic pain; E03.9 Hypothyroidism, unspecified; G47.33 Obstructive sleep apnea (adult) (pediatric); G25.81 Restless legs syndrome; E66.3 Overweight; W18.09XA Striking against other object with subsequent fall, initial encounter ==

== ENCOUNTER → 2021-02-25 | Outpatient (CLI) | payer BC | LOC: WCC 11:44 | PROVIDERS: ATTEND Plastic Surgery | DX: T86.828 Other complications of skin graft (allograft) (autograft) (principal); Y83.8 Other surgical procedures as the cause of abnormal reaction of the patient, or of later complication, without mention of misadventure at the time of the procedure; I87.2 Venous insufficiency (chronic) (peripheral); R60.0 Localized edema; G89.29 Other chronic pain; E03.9 Hypothyroidism, unspecified; G47.33 Obstructive sleep apnea (adult) (pediatric); G25.81 Restless legs syndrome; E66.3 Overweight; W18.09XA Striking against other object with subsequent fall, initial encounter ==

== ENCOUNTER → 2021-02-27 | Outpatient (CLI) | payer BC | LOC: WCC 10:05 | PROVIDERS: ATTEND Plastic Surgery | DX: T86.828 Other complications of skin graft (allograft) (autograft) (principal); Y83.8 Other surgical procedures as the cause of abnormal reaction of the patient, or of later complication, without mention of misadventure at the time of the procedure; I87.2 Venous insufficiency (chronic) (peripheral); R60.0 Localized edema; G89.29 Other chronic pain; G47.33 Obstructive sleep apnea (adult) (pediatric); E03.9 Hypothyroidism, unspecified; G25.81 Restless legs syndrome; E66.3 Overweight; W18.09XA Striking against other object with subsequent fall, initial encounter ==

== ENCOUNTER → 2021-03-01 | Outpatient (CLI) | payer BC | LOC: WCC 08:19 | PROVIDERS: ATTEND Plastic Surgery | DX: T86.828 Other complications of skin graft (allograft) (autograft) (principal); Y83.8 Other surgical procedures as the cause of abnormal reaction of the patient, or of later complication, without mention of misadventure at the time of the procedure; I87.2 Venous insufficiency (chronic) (peripheral); R60.0 Localized edema; G89.29 Other chronic pain; E03.9 Hypothyroidism, unspecified; G47.33 Obstructive sleep apnea (adult) (pediatric); G25.81 Restless legs syndrome; E66.3 Overweight; W18.09XA Striking against other object with subsequent fall, initial encounter ==

== ENCOUNTER → 2021-03-04 | Outpatient (CLI) | payer BC | LOC: WCC 09:23 | PROVIDERS: ATTEND Plastic Surgery | DX: T86.828 Other complications of skin graft (allograft) (autograft) (principal); Y83.8 Other surgical procedures as the cause of abnormal reaction of the patient, or of later complication, without mention of misadventure at the time of the procedure; I87.2 Venous insufficiency (chronic) (peripheral); R60.0 Localized edema; G89.29 Other chronic pain; G47.33 Obstructive sleep apnea (adult) (pediatric); E03.9 Hypothyroidism, unspecified; E66.3 Overweight; G25.81 Restless legs syndrome; W18.09XA Striking against other object with subsequent fall, initial encounter ==

== ENCOUNTER → 2021-03-06 | Outpatient (CLI) | payer BC | LOC: WCC 08:22 | PROVIDERS: ATTEND Plastic Surgery | DX: T86.828 Other complications of skin graft (allograft) (autograft) (principal); Y83.8 Other surgical procedures as the cause of abnormal reaction of the patient, or of later complication, without mention of misadventure at the time of the procedure; I87.2 Venous insufficiency (chronic) (peripheral); R60.0 Localized edema; G89.29 Other chronic pain; E03.9 Hypothyroidism, unspecified; G47.33 Obstructive sleep apnea (adult) (pediatric); G25.81 Restless legs syndrome; E66.3 Overweight; W18.09XA Striking against other object with subsequent fall, initial encounter ==

== ENCOUNTER → 2021-04-01 | Outpatient (CLI) | payer BC | LOC: WCC 11:32 | PROVIDERS: ATTEND Plastic Surgery | DX: T86.828 Other complications of skin graft (allograft) (autograft) (principal); Y83.8 Other surgical procedures as the cause of abnormal reaction of the patient, or of later complication, without mention of misadventure at the time of the procedure; I87.2 Venous insufficiency (chronic) (peripheral); R60.0 Localized edema; G89.29 Other chronic pain; G47.33 Obstructive sleep apnea (adult) (pediatric); E03.9 Hypothyroidism, unspecified; G25.81 Restless legs syndrome; E66.3 Overweight; W18.09XA Striking against other object with subsequent fall, initial encounter ==

== ENCOUNTER → 2021-04-03 | Outpatient (CLI) | payer BC | LOC: WCC 09:28 | PROVIDERS: ATTEND Plastic Surgery | DX: T86.828 Other complications of skin graft (allograft) (autograft) (principal); Y83.8 Other surgical procedures as the cause of abnormal reaction of the patient, or of later complication, without mention of misadventure at the time of the procedure; I87.2 Venous insufficiency (chronic) (peripheral); R60.0 Localized edema; G89.29 Other chronic pain; E03.9 Hypothyroidism, unspecified; G47.33 Obstructive sleep apnea (adult) (pediatric); G25.81 Restless legs syndrome; E66.3 Overweight; W18.09XA Striking against other object with subsequent fall, initial encounter ==

== ENCOUNTER → 2021-04-05 | Outpatient (CLI) | payer BC | LOC: WCC 11:38 | PROVIDERS: ATTEND Plastic Surgery | DX: T86.828 Other complications of skin graft (allograft) (autograft) (principal); Y83.8 Other surgical procedures as the cause of abnormal reaction of the patient, or of later complication, without mention of misadventure at the time of the procedure; I87.2 Venous insufficiency (chronic) (peripheral); R60.0 Localized edema; G89.29 Other chronic pain; E03.9 Hypothyroidism, unspecified; G47.33 Obstructive sleep apnea (adult) (pediatric); G25.81 Restless legs syndrome; E66.3 Overweight; W18.09XA Striking against other object with subsequent fall, initial encounter ==

== ENCOUNTER → 2021-04-08 | Outpatient (CLI) | payer BC | LOC: WCC 09:36 | PROVIDERS: ATTEND Plastic Surgery | DX: T86.828 Other complications of skin graft (allograft) (autograft) (principal); Y83.8 Other surgical procedures as the cause of abnormal reaction of the patient, or of later complication, without mention of misadventure at the time of the procedure; I87.2 Venous insufficiency (chronic) (peripheral); R60.0 Localized edema; G89.29 Other chronic pain; E03.9 Hypothyroidism, unspecified; G47.33 Obstructive sleep apnea (adult) (pediatric); G25.81 Restless legs syndrome; E66.3 Overweight; W18.09XA Striking against other object with subsequent fall, initial encounter ==

== ENCOUNTER → 2021-04-10 | Outpatient (CLI) | payer BC | LOC: WCC 14:18 | PROVIDERS: ATTEND Plastic Surgery | DX: T86.828 Other complications of skin graft (allograft) (autograft) (principal); Y83.8 Other surgical procedures as the cause of abnormal reaction of the patient, or of later complication, without mention of misadventure at the time of the procedure; I87.311 Chronic venous hypertension (idiopathic) with ulcer of right lower extremity; L97.811 Non-pressure chronic ulcer of other part of right lower leg limited to breakdown of skin; I87.2 Venous insufficiency (chronic) (peripheral); R60.0 Localized edema; G89.29 Other chronic pain; G47.33 Obstructive sleep apnea (adult) (pediatric); E03.9 Hypothyroidism, unspecified; G25.81 Restless legs syndrome; E66.3 Overweight; W18.09XA Striking against other object with subsequent fall, initial encounter ==

== ENCOUNTER → 2021-04-12 | Outpatient (CLI) | payer BC | LOC: WCC 11:04 | PROVIDERS: ATTEND Plastic Surgery | DX: T86.828 Other complications of skin graft (allograft) (autograft) (principal); Y83.8 Other surgical procedures as the cause of abnormal reaction of the patient, or of later complication, without mention of misadventure at the time of the procedure; I87.311 Chronic venous hypertension (idiopathic) with ulcer of right lower extremity; L97.811 Non-pressure chronic ulcer of other part of right lower leg limited to breakdown of skin; I87.2 Venous insufficiency (chronic) (peripheral); R60.0 Localized edema; G89.29 Other chronic pain; G47.33 Obstructive sleep apnea (adult) (pediatric); E03.9 Hypothyroidism, unspecified; G25.81 Restless legs syndrome; E66.3 Overweight; W18.09XA Striking against other object with subsequent fall, initial encounter ==

== ENCOUNTER → 2021-04-15 | Outpatient (CLI) | payer BC | LOC: WCC 15:54 | PROVIDERS: ATTEND Plastic Surgery | DX: T86.828 Other complications of skin graft (allograft) (autograft) (principal); Y83.8 Other surgical procedures as the cause of abnormal reaction of the patient, or of later complication, without mention of misadventure at the time of the procedure; L97.811 Non-pressure chronic ulcer of other part of right lower leg limited to breakdown of skin; I87.311 Chronic venous hypertension (idiopathic) with ulcer of right lower extremity; I87.2 Venous insufficiency (chronic) (peripheral); R60.0 Localized edema; G89.29 Other chronic pain; E03.9 Hypothyroidism, unspecified; G47.33 Obstructive sleep apnea (adult) (pediatric); E66.3 Overweight; G25.81 Restless legs syndrome; W18.09XA Striking against other object with subsequent fall, initial encounter ==

== ENCOUNTER → 2021-04-17 | Outpatient (CLI) | payer BC ==
[~2021-04-17] MED LIST changes: +LIDOCAINE VISC 2% SOLN 15 ML UDC ONE; +MINERAL OIL/PETROLAT/GLYCERI 6OZ BTL ONE
== END ==
LOC: WCC 12:58
PROVIDERS: ATTEND Plastic Surgery
DX: T86.828 Other complications of skin graft (allograft) (autograft) (principal); Y83.8 Other surgical procedures as the cause of abnormal reaction of the patient, or of later complication, without mention of misadventure at the time of the procedure; I87.311 Chronic venous hypertension (idiopathic) with ulcer of right lower extremity; L97.811 Non-pressure chronic ulcer of other part of right lower leg limited to breakdown of skin; I87.2 Venous insufficiency (chronic) (peripheral); R60.0 Localized edema; G89.29 Other chronic pain; E03.9 Hypothyroidism, unspecified; G47.33 Obstructive sleep apnea (adult) (pediatric); G25.81 Restless legs syndrome; W18.09XA Striking against other object with subsequent fall, initial encounter

== ENCOUNTER → 2021-04-19 | Outpatient (CLI) | payer BC ==
[~2021-04-19] MED LIST changes: -LIDOCAINE VISC 2% SOLN 15 ML UDC ONE; -MINERAL OIL/PETROLAT/GLYCERI 6OZ BTL ONE
== END ==
LOC: WCC 10:21
PROVIDERS: ATTEND Plastic Surgery
DX: T86.828 Other complications of skin graft (allograft) (autograft) (principal); Y83.8 Other surgical procedures as the cause of abnormal reaction of the patient, or of later complication, without mention of misadventure at the time of the procedure; I87.311 Chronic venous hypertension (idiopathic) with ulcer of right lower extremity; L97.811 Non-pressure chronic ulcer of other part of right lower leg limited to breakdown of skin; I87.2 Venous insufficiency (chronic) (peripheral); R60.0 Localized edema; G89.29 Other chronic pain; G47.33 Obstructive sleep apnea (adult) (pediatric); E03.9 Hypothyroidism, unspecified; G25.81 Restless legs syndrome; E66.3 Overweight

== ENCOUNTER → 2021-04-22 | Outpatient (CLI) | payer BC | LOC: WCC 12:31 | PROVIDERS: ATTEND Plastic Surgery | DX: T86.828 Other complications of skin graft (allograft) (autograft) (principal); Y83.8 Other surgical procedures as the cause of abnormal reaction of the patient, or of later complication, without mention of misadventure at the time of the procedure; I87.311 Chronic venous hypertension (idiopathic) with ulcer of right lower extremity; L97.811 Non-pressure chronic ulcer of other part of right lower leg limited to breakdown of skin; I87.2 Venous insufficiency (chronic) (peripheral); R60.0 Localized edema; G89.29 Other chronic pain; E03.9 Hypothyroidism, unspecified; G47.33 Obstructive sleep apnea (adult) (pediatric); G25.81 Restless legs syndrome; E66.3 Overweight; W18.09XA Striking against other object with subsequent fall, initial encounter ==

== ENCOUNTER → 2021-04-24 | Outpatient (CLI) | payer BC | LOC: WCC 13:05 | PROVIDERS: ATTEND Plastic Surgery | DX: T86.828 Other complications of skin graft (allograft) (autograft) (principal); Y83.8 Other surgical procedures as the cause of abnormal reaction of the patient, or of later complication, without mention of misadventure at the time of the procedure; I87.311 Chronic venous hypertension (idiopathic) with ulcer of right lower extremity; L97.811 Non-pressure chronic ulcer of other part of right lower leg limited to breakdown of skin; I87.2 Venous insufficiency (chronic) (peripheral); R60.0 Localized edema; G89.29 Other chronic pain; E03.9 Hypothyroidism, unspecified; G47.33 Obstructive sleep apnea (adult) (pediatric); G25.81 Restless legs syndrome; E66.3 Overweight; W18.09XA Striking against other object with subsequent fall, initial encounter ==

== ENCOUNTER → 2021-04-26 | Outpatient (CLI) | payer BC | LOC: WCC 14:05 | PROVIDERS: ATTEND Plastic Surgery | DX: T86.828 Other complications of skin graft (allograft) (autograft) (principal); Y83.8 Other surgical procedures as the cause of abnormal reaction of the patient, or of later complication, without mention of misadventure at the time of the procedure; I87.311 Chronic venous hypertension (idiopathic) with ulcer of right lower extremity; L97.811 Non-pressure chronic ulcer of other part of right lower leg limited to breakdown of skin; I87.2 Venous insufficiency (chronic) (peripheral); R60.0 Localized edema; G89.29 Other chronic pain; E03.9 Hypothyroidism, unspecified; G47.33 Obstructive sleep apnea (adult) (pediatric); G25.81 Restless legs syndrome; E66.3 Overweight; W18.09XA Striking against other object with subsequent fall, initial encounter ==

== ENCOUNTER → 2021-04-29 | Outpatient (CLI) | payer BC | LOC: WCC 13:24 | PROVIDERS: ATTEND Plastic Surgery | DX: T86.828 Other complications of skin graft (allograft) (autograft) (principal); Y83.8 Other surgical procedures as the cause of abnormal reaction of the patient, or of later complication, without mention of misadventure at the time of the procedure; I87.311 Chronic venous hypertension (idiopathic) with ulcer of right lower extremity; L97.811 Non-pressure chronic ulcer of other part of right lower leg limited to breakdown of skin; I87.2 Venous insufficiency (chronic) (peripheral); R60.0 Localized edema; G47.33 Obstructive sleep apnea (adult) (pediatric); E03.9 Hypothyroidism, unspecified; G89.29 Other chronic pain; G25.81 Restless legs syndrome; E66.3 Overweight; W18.09XA Striking against other object with subsequent fall, initial encounter ==

== ENCOUNTER → 2021-05-01 | Outpatient (CLI) | payer BC | LOC: WCC 08:58 | PROVIDERS: ATTEND Plastic Surgery | DX: T86.828 Other complications of skin graft (allograft) (autograft) (principal); Y83.8 Other surgical procedures as the cause of abnormal reaction of the patient, or of later complication, without mention of misadventure at the time of the procedure; L97.811 Non-pressure chronic ulcer of other part of right lower leg limited to breakdown of skin; I87.311 Chronic venous hypertension (idiopathic) with ulcer of right lower extremity; I87.2 Venous insufficiency (chronic) (peripheral); R60.0 Localized edema; G89.29 Other chronic pain; E03.9 Hypothyroidism, unspecified; G47.33 Obstructive sleep apnea (adult) (pediatric); G25.81 Restless legs syndrome; E66.3 Overweight; W18.09XA Striking against other object with subsequent fall, initial encounter ==

== ENCOUNTER → 2021-05-03 | Outpatient (CLI) | payer BC | LOC: WCC 08:13 | PROVIDERS: ATTEND Plastic Surgery | DX: T86.828 Other complications of skin graft (allograft) (autograft) (principal); Y83.8 Other surgical procedures as the cause of abnormal reaction of the patient, or of later complication, without mention of misadventure at the time of the procedure; I87.311 Chronic venous hypertension (idiopathic) with ulcer of right lower extremity; L97.811 Non-pressure chronic ulcer of other part of right lower leg limited to breakdown of skin; I87.2 Venous insufficiency (chronic) (peripheral); R60.0 Localized edema; G89.29 Other chronic pain; G47.33 Obstructive sleep apnea (adult) (pediatric); E03.9 Hypothyroidism, unspecified; G25.81 Restless legs syndrome; E66.3 Overweight; W18.09XA Striking against other object with subsequent fall, initial encounter ==

== ENCOUNTER → 2021-05-06 | Outpatient (CLI) | payer BC | LOC: WCC 11:41 | PROVIDERS: ATTEND Plastic Surgery | DX: T86.828 Other complications of skin graft (allograft) (autograft) (principal); Y83.8 Other surgical procedures as the cause of abnormal reaction of the patient, or of later complication, without mention of misadventure at the time of the procedure; I87.311 Chronic venous hypertension (idiopathic) with ulcer of right lower extremity; L97.811 Non-pressure chronic ulcer of other part of right lower leg limited to breakdown of skin; I87.2 Venous insufficiency (chronic) (peripheral); R60.0 Localized edema; G89.29 Other chronic pain; E03.9 Hypothyroidism, unspecified; G47.33 Obstructive sleep apnea (adult) (pediatric); G25.81 Restless legs syndrome; E66.3 Overweight; W18.09XA Striking against other object with subsequent fall, initial encounter ==

== ENCOUNTER → 2021-05-10 | Outpatient (CLI) | payer BC | LOC: WCC 09:46 | PROVIDERS: ATTEND Plastic Surgery | DX: T86.828 Other complications of skin graft (allograft) (autograft) (principal); Y83.8 Other surgical procedures as the cause of abnormal reaction of the patient, or of later complication, without mention of misadventure at the time of the procedure; I87.311 Chronic venous hypertension (idiopathic) with ulcer of right lower extremity; L97.811 Non-pressure chronic ulcer of other part of right lower leg limited to breakdown of skin; I87.2 Venous insufficiency (chronic) (peripheral); R60.0 Localized edema; G89.29 Other chronic pain; G47.33 Obstructive sleep apnea (adult) (pediatric); E03.9 Hypothyroidism, unspecified; G25.81 Restless legs syndrome; E66.3 Overweight; W18.09XA Striking against other object with subsequent fall, initial encounter ==

== ENCOUNTER → 2021-05-13 | Outpatient (CLI) | payer BC | LOC: WCC 12:21 | PROVIDERS: ATTEND Plastic Surgery | DX: T86.828 Other complications of skin graft (allograft) (autograft) (principal); Y83.8 Other surgical procedures as the cause of abnormal reaction of the patient, or of later complication, without mention of misadventure at the time of the procedure; I87.311 Chronic venous hypertension (idiopathic) with ulcer of right lower extremity; L97.811 Non-pressure chronic ulcer of other part of right lower leg limited to breakdown of skin; I87.2 Venous insufficiency (chronic) (peripheral); R60.0 Localized edema; G89.29 Other chronic pain; G47.33 Obstructive sleep apnea (adult) (pediatric); E03.9 Hypothyroidism, unspecified; G25.81 Restless legs syndrome; E66.3 Overweight; W18.09XA Striking against other object with subsequent fall, initial encounter ==

== ENCOUNTER → 2021-05-17 | Outpatient (CLI) | payer BC ==
[~2021-05-17] MED LIST changes: +COLLAGENASE OINTMENT 30 GM TUBE ONE; +LIDOCAINE/PRILOCAINE 2.5-2.5% KIT ONE; +MINERAL OIL/PETROLAT/GLYCERI 2OZ CRM ONE; +MUPIROCIN 2% OINT 22 GM TUBE ONE
== END ==
LOC: WCC 09:33
PROVIDERS: ATTEND Plastic Surgery
DX: T86.828 Other complications of skin graft (allograft) (autograft) (principal); Y83.8 Other surgical procedures as the cause of abnormal reaction of the patient, or of later complication, without mention of misadventure at the time of the procedure; I87.311 Chronic venous hypertension (idiopathic) with ulcer of right lower extremity; L97.811 Non-pressure chronic ulcer of other part of right lower leg limited to breakdown of skin; I87.2 Venous insufficiency (chronic) (peripheral); G89.29 Other chronic pain; E03.9 Hypothyroidism, unspecified; G47.33 Obstructive sleep apnea (adult) (pediatric); G25.81 Restless legs syndrome; E66.3 Overweight; W18.09XA Striking against other object with subsequent fall, initial encounter

== ENCOUNTER → 2021-05-20 | Outpatient (CLI) | payer BC ==
[~2021-05-20] MED LIST changes: -COLLAGENASE OINTMENT 30 GM TUBE ONE; -LIDOCAINE/PRILOCAINE 2.5-2.5% KIT ONE; -MINERAL OIL/PETROLAT/GLYCERI 2OZ CRM ONE; -MUPIROCIN 2% OINT 22 GM TUBE ONE
== END ==
LOC: WCC 10:54
PROVIDERS: ATTEND Plastic Surgery
DX: T86.828 Other complications of skin graft (allograft) (autograft) (principal); Y83.8 Other surgical procedures as the cause of abnormal reaction of the patient, or of later complication, without mention of misadventure at the time of the procedure; I87.311 Chronic venous hypertension (idiopathic) with ulcer of right lower extremity; L97.811 Non-pressure chronic ulcer of other part of right lower leg limited to breakdown of skin; I87.2 Venous insufficiency (chronic) (peripheral); R60.0 Localized edema; G89.29 Other chronic pain; E03.9 Hypothyroidism, unspecified; G47.33 Obstructive sleep apnea (adult) (pediatric); G25.81 Restless legs syndrome; E66.3 Overweight; W18.09XA Striking against other object with subsequent fall, initial encounter

== ENCOUNTER → 2021-05-24 | Outpatient (CLI) | payer BC | LOC: WCC 13:17 | PROVIDERS: ATTEND Plastic Surgery | DX: T86.828 Other complications of skin graft (allograft) (autograft) (principal); Y83.8 Other surgical procedures as the cause of abnormal reaction of the patient, or of later complication, without mention of misadventure at the time of the procedure; I87.311 Chronic venous hypertension (idiopathic) with ulcer of right lower extremity; L97.811 Non-pressure chronic ulcer of other part of right lower leg limited to breakdown of skin; I87.2 Venous insufficiency (chronic) (peripheral); R60.0 Localized edema; G89.29 Other chronic pain; E03.9 Hypothyroidism, unspecified; G47.33 Obstructive sleep apnea (adult) (pediatric); G25.81 Restless legs syndrome; E66.3 Overweight; W18.09XA Striking against other object with subsequent fall, initial encounter ==

== ENCOUNTER → 2021-05-27 | Outpatient (CLI) | payer BC | LOC: WCC 08:50 | PROVIDERS: ATTEND Plastic Surgery | DX: T86.828 Other complications of skin graft (allograft) (autograft) (principal); Y83.8 Other surgical procedures as the cause of abnormal reaction of the patient, or of later complication, without mention of misadventure at the time of the procedure; I87.311 Chronic venous hypertension (idiopathic) with ulcer of right lower extremity; L97.811 Non-pressure chronic ulcer of other part of right lower leg limited to breakdown of skin; I87.2 Venous insufficiency (chronic) (peripheral); R60.0 Localized edema; G89.29 Other chronic pain; E03.9 Hypothyroidism, unspecified; G47.33 Obstructive sleep apnea (adult) (pediatric); E66.3 Overweight; G25.81 Restless legs syndrome; W18.09XA Striking against other object with subsequent fall, initial encounter ==

== ENCOUNTER → 2021-05-31 | Outpatient (CLI) | payer BC | LOC: WCC 09:49 | PROVIDERS: ATTEND Plastic Surgery | DX: T86.828 Other complications of skin graft (allograft) (autograft) (principal); Y83.8 Other surgical procedures as the cause of abnormal reaction of the patient, or of later complication, without mention of misadventure at the time of the procedure; I87.311 Chronic venous hypertension (idiopathic) with ulcer of right lower extremity; L97.811 Non-pressure chronic ulcer of other part of right lower leg limited to breakdown of skin; I87.2 Venous insufficiency (chronic) (peripheral); R60.0 Localized edema; G89.29 Other chronic pain; W18.09XA Striking against other object with subsequent fall, initial encounter; G47.33 Obstructive sleep apnea (adult) (pediatric); E03.9 Hypothyroidism, unspecified; G25.81 Restless legs syndrome; E66.3 Overweight ==

== ENCOUNTER → 2021-06-04 | Outpatient (CLI) | payer BC | LOC: WCC 13:45 | PROVIDERS: ATTEND Plastic Surgery | DX: T86.828 Other complications of skin graft (allograft) (autograft) (principal); Y83.8 Other surgical procedures as the cause of abnormal reaction of the patient, or of later complication, without mention of misadventure at the time of the procedure; I87.311 Chronic venous hypertension (idiopathic) with ulcer of right lower extremity; L97.811 Non-pressure chronic ulcer of other part of right lower leg limited to breakdown of skin; I87.2 Venous insufficiency (chronic) (peripheral); R60.0 Localized edema; G89.29 Other chronic pain; E03.9 Hypothyroidism, unspecified; G47.33 Obstructive sleep apnea (adult) (pediatric); W18.09XA Striking against other object with subsequent fall, initial encounter; G25.81 Restless legs syndrome; E66.3 Overweight ==

== ENCOUNTER → 2021-06-07 | Outpatient (CLI) | payer BC | LOC: WCC 08:32 | PROVIDERS: ATTEND Plastic Surgery | DX: T86.828 Other complications of skin graft (allograft) (autograft) (principal); Y83.8 Other surgical procedures as the cause of abnormal reaction of the patient, or of later complication, without mention of misadventure at the time of the procedure; I87.311 Chronic venous hypertension (idiopathic) with ulcer of right lower extremity; L97.811 Non-pressure chronic ulcer of other part of right lower leg limited to breakdown of skin; I87.2 Venous insufficiency (chronic) (peripheral); R60.0 Localized edema; G89.29 Other chronic pain; E03.9 Hypothyroidism, unspecified; G47.33 Obstructive sleep apnea (adult) (pediatric); G25.81 Restless legs syndrome; E66.3 Overweight; W18.09XA Striking against other object with subsequent fall, initial encounter ==

== ENCOUNTER → 2021-06-11 | Outpatient (CLI) | payer BC | LOC: WCC 14:09 | PROVIDERS: ATTEND Plastic Surgery | DX: T86.828 Other complications of skin graft (allograft) (autograft) (principal); Y83.8 Other surgical procedures as the cause of abnormal reaction of the patient, or of later complication, without mention of misadventure at the time of the procedure; L97.811 Non-pressure chronic ulcer of other part of right lower leg limited to breakdown of skin; I87.311 Chronic venous hypertension (idiopathic) with ulcer of right lower extremity; I87.2 Venous insufficiency (chronic) (peripheral); R60.0 Localized edema; G89.29 Other chronic pain; E03.9 Hypothyroidism, unspecified; G47.33 Obstructive sleep apnea (adult) (pediatric); G25.81 Restless legs syndrome; E66.3 Overweight; W18.09XA Striking against other object with subsequent fall, initial encounter ==

== ENCOUNTER → 2021-06-14 | Outpatient (CLI) | payer BC | LOC: WCC 10:55 | PROVIDERS: ATTEND Plastic Surgery | DX: T86.828 Other complications of skin graft (allograft) (autograft) (principal); Y83.8 Other surgical procedures as the cause of abnormal reaction of the patient, or of later complication, without mention of misadventure at the time of the procedure; I87.311 Chronic venous hypertension (idiopathic) with ulcer of right lower extremity; L97.811 Non-pressure chronic ulcer of other part of right lower leg limited to breakdown of skin; I87.2 Venous insufficiency (chronic) (peripheral); R60.0 Localized edema; G89.29 Other chronic pain; G47.33 Obstructive sleep apnea (adult) (pediatric); E03.9 Hypothyroidism, unspecified; G25.81 Restless legs syndrome; E66.3 Overweight; W18.09XA Striking against other object with subsequent fall, initial encounter ==

== ENCOUNTER → 2021-06-17 | Outpatient (CLI) | payer BC ==
[~2021-06-17] MED LIST changes: +LIDOCAINE VISC 2% SOLN 15 ML UDC ONE; +MINERAL OIL/PETROLAT/GLYCERI 6OZ BTL ONE
== END ==
LOC: WCC 09:40
PROVIDERS: ATTEND Plastic Surgery
DX: T86.828 Other complications of skin graft (allograft) (autograft) (principal); Y83.8 Other surgical procedures as the cause of abnormal reaction of the patient, or of later complication, without mention of misadventure at the time of the procedure; I87.311 Chronic venous hypertension (idiopathic) with ulcer of right lower extremity; L97.811 Non-pressure chronic ulcer of other part of right lower leg limited to breakdown of skin; I87.2 Venous insufficiency (chronic) (peripheral); R60.0 Localized edema; G89.29 Other chronic pain; E03.9 Hypothyroidism, unspecified; G47.33 Obstructive sleep apnea (adult) (pediatric); E66.3 Overweight; G25.81 Restless legs syndrome; W18.09XA Striking against other object with subsequent fall, initial encounter

== ENCOUNTER → 2021-06-21 | Outpatient (CLI) | payer BC ==
[~2021-06-21] MED LIST changes: -LIDOCAINE VISC 2% SOLN 15 ML UDC ONE; -MINERAL OIL/PETROLAT/GLYCERI 6OZ BTL ONE
== END ==
LOC: WCC 09:24
PROVIDERS: ATTEND Plastic Surgery
DX: T86.828 Other complications of skin graft (allograft) (autograft) (principal); Y83.8 Other surgical procedures as the cause of abnormal reaction of the patient, or of later complication, without mention of misadventure at the time of the procedure; I87.311 Chronic venous hypertension (idiopathic) with ulcer of right lower extremity; L97.811 Non-pressure chronic ulcer of other part of right lower leg limited to breakdown of skin; I87.2 Venous insufficiency (chronic) (peripheral); R60.0 Localized edema; G89.29 Other chronic pain; E03.9 Hypothyroidism, unspecified; G47.33 Obstructive sleep apnea (adult) (pediatric); G25.81 Restless legs syndrome; E66.3 Overweight; W18.09XA Striking against other object with subsequent fall, initial encounter

== ENCOUNTER → 2021-06-24 | Outpatient (CLI) | payer BC | LOC: WCC 10:30 | PROVIDERS: ATTEND Plastic Surgery | DX: T86.828 Other complications of skin graft (allograft) (autograft) (principal); Y83.8 Other surgical procedures as the cause of abnormal reaction of the patient, or of later complication, without mention of misadventure at the time of the procedure; I87.311 Chronic venous hypertension (idiopathic) with ulcer of right lower extremity; L97.811 Non-pressure chronic ulcer of other part of right lower leg limited to breakdown of skin; I87.2 Venous insufficiency (chronic) (peripheral); R60.0 Localized edema; G89.29 Other chronic pain; G47.33 Obstructive sleep apnea (adult) (pediatric); E03.9 Hypothyroidism, unspecified; G25.81 Restless legs syndrome; E66.3 Overweight; W18.09XA Striking against other object with subsequent fall, initial encounter ==

== ENCOUNTER → 2021-06-28 | Outpatient (CLI) | payer BC | LOC: WCC 08:40 | PROVIDERS: ATTEND Plastic Surgery | DX: T86.828 Other complications of skin graft (allograft) (autograft) (principal); Y83.8 Other surgical procedures as the cause of abnormal reaction of the patient, or of later complication, without mention of misadventure at the time of the procedure; L97.811 Non-pressure chronic ulcer of other part of right lower leg limited to breakdown of skin; I87.311 Chronic venous hypertension (idiopathic) with ulcer of right lower extremity; I87.2 Venous insufficiency (chronic) (peripheral); R60.0 Localized edema; G89.29 Other chronic pain; E03.9 Hypothyroidism, unspecified; G47.33 Obstructive sleep apnea (adult) (pediatric); G25.81 Restless legs syndrome; E66.3 Overweight; W18.09XA Striking against other object with subsequent fall, initial encounter ==

== ENCOUNTER → 2021-07-01 | Outpatient (CLI) | payer BC | LOC: WCC 14:53 | PROVIDERS: ATTEND Plastic Surgery | DX: T86.828 Other complications of skin graft (allograft) (autograft) (principal); Y83.8 Other surgical procedures as the cause of abnormal reaction of the patient, or of later complication, without mention of misadventure at the time of the procedure; I87.311 Chronic venous hypertension (idiopathic) with ulcer of right lower extremity; L97.811 Non-pressure chronic ulcer of other part of right lower leg limited to breakdown of skin; I87.2 Venous insufficiency (chronic) (peripheral); R60.0 Localized edema; G89.29 Other chronic pain; E03.9 Hypothyroidism, unspecified; G47.33 Obstructive sleep apnea (adult) (pediatric); G25.81 Restless legs syndrome; E66.3 Overweight; W18.09XA Striking against other object with subsequent fall, initial encounter ==

== ENCOUNTER → 2021-07-05 | Outpatient (CLI) | payer BC | LOC: WCC 09:39 | PROVIDERS: ATTEND Plastic Surgery | DX: T86.828 Other complications of skin graft (allograft) (autograft) (principal); Y83.8 Other surgical procedures as the cause of abnormal reaction of the patient, or of later complication, without mention of misadventure at the time of the procedure; I87.311 Chronic venous hypertension (idiopathic) with ulcer of right lower extremity; L97.811 Non-pressure chronic ulcer of other part of right lower leg limited to breakdown of skin; I87.2 Venous insufficiency (chronic) (peripheral); R60.0 Localized edema; G89.29 Other chronic pain; W18.09XA Striking against other object with subsequent fall, initial encounter; G47.33 Obstructive sleep apnea (adult) (pediatric); G25.81 Restless legs syndrome; E66.3 Overweight; E03.9 Hypothyroidism, unspecified ==

== ENCOUNTER → 2021-07-08 | Outpatient (CLI) | payer BC | LOC: WCC 10:51 | PROVIDERS: ATTEND Plastic Surgery | DX: T86.828 Other complications of skin graft (allograft) (autograft) (principal); Y83.8 Other surgical procedures as the cause of abnormal reaction of the patient, or of later complication, without mention of misadventure at the time of the procedure; L97.811 Non-pressure chronic ulcer of other part of right lower leg limited to breakdown of skin; I87.311 Chronic venous hypertension (idiopathic) with ulcer of right lower extremity; W18.09XA Striking against other object with subsequent fall, initial encounter; G47.33 Obstructive sleep apnea (adult) (pediatric); E66.3 Overweight; E03.9 Hypothyroidism, unspecified; I87.2 Venous insufficiency (chronic) (peripheral); G89.29 Other chronic pain; G25.81 Restless legs syndrome; R60.0 Localized edema ==

== ENCOUNTER → 2021-07-12 | Outpatient (CLI) | payer BC | LOC: WCC 12:39 | PROVIDERS: ATTEND Plastic Surgery | DX: T86.828 Other complications of skin graft (allograft) (autograft) (principal); Y83.8 Other surgical procedures as the cause of abnormal reaction of the patient, or of later complication, without mention of misadventure at the time of the procedure; L97.811 Non-pressure chronic ulcer of other part of right lower leg limited to breakdown of skin; I87.311 Chronic venous hypertension (idiopathic) with ulcer of right lower extremity; I87.2 Venous insufficiency (chronic) (peripheral); R60.0 Localized edema; E03.9 Hypothyroidism, unspecified; G47.33 Obstructive sleep apnea (adult) (pediatric); G25.81 Restless legs syndrome; E66.3 Overweight; W18.09XA Striking against other object with subsequent fall, initial encounter ==

== ENCOUNTER → 2021-07-16 | Outpatient (CLI) | payer BC | LOC: WCC 12:54 | PROVIDERS: ATTEND Plastic Surgery | DX: T86.828 Other complications of skin graft (allograft) (autograft) (principal); Y83.8 Other surgical procedures as the cause of abnormal reaction of the patient, or of later complication, without mention of misadventure at the time of the procedure; I87.311 Chronic venous hypertension (idiopathic) with ulcer of right lower extremity; L97.811 Non-pressure chronic ulcer of other part of right lower leg limited to breakdown of skin; I87.2 Venous insufficiency (chronic) (peripheral); R60.0 Localized edema; G89.29 Other chronic pain; E03.9 Hypothyroidism, unspecified; G47.33 Obstructive sleep apnea (adult) (pediatric); G25.81 Restless legs syndrome; E66.3 Overweight; W18.09XA Striking against other object with subsequent fall, initial encounter ==

== ENCOUNTER → 2021-07-19 | Outpatient (CLI) | payer BC ==
[~2021-07-19] MED LIST changes: +LIDOCAINE VISC 2% SOLN 15 ML UDC ONE; +MINERAL OIL/PETROLAT/GLYCERI 6OZ BTL ONE; +MUPIROCIN 2% OINT 22 GM TUBE ONE
== END ==
LOC: WCC 09:53
PROVIDERS: ATTEND Plastic Surgery
DX: T86.828 Other complications of skin graft (allograft) (autograft) (principal); Y83.8 Other surgical procedures as the cause of abnormal reaction of the patient, or of later complication, without mention of misadventure at the time of the procedure; I87.311 Chronic venous hypertension (idiopathic) with ulcer of right lower extremity; L97.811 Non-pressure chronic ulcer of other part of right lower leg limited to breakdown of skin; I87.2 Venous insufficiency (chronic) (peripheral); R60.0 Localized edema; G89.29 Other chronic pain; G47.33 Obstructive sleep apnea (adult) (pediatric); E03.9 Hypothyroidism, unspecified; G25.81 Restless legs syndrome; E66.3 Overweight; W18.09XA Striking against other object with subsequent fall, initial encounter

== ENCOUNTER → 2021-07-22 | Outpatient (CLI) | payer BC ==
[~2021-07-22] MED LIST changes: -LIDOCAINE VISC 2% SOLN 15 ML UDC ONE; -MINERAL OIL/PETROLAT/GLYCERI 6OZ BTL ONE; -MUPIROCIN 2% OINT 22 GM TUBE ONE
== END ==
LOC: WCC 11:14
PROVIDERS: ATTEND Plastic Surgery
DX: T86.828 Other complications of skin graft (allograft) (autograft) (principal); Y83.8 Other surgical procedures as the cause of abnormal reaction of the patient, or of later complication, without mention of misadventure at the time of the procedure; I87.311 Chronic venous hypertension (idiopathic) with ulcer of right lower extremity; L97.811 Non-pressure chronic ulcer of other part of right lower leg limited to breakdown of skin; I87.2 Venous insufficiency (chronic) (peripheral); R60.0 Localized edema; G89.29 Other chronic pain; E03.9 Hypothyroidism, unspecified; G47.33 Obstructive sleep apnea (adult) (pediatric); G25.81 Restless legs syndrome; E66.3 Overweight; W18.09XA Striking against other object with subsequent fall, initial encounter

== ENCOUNTER → 2021-07-26 | Outpatient (CLI) | payer BC | LOC: WCC 11:52 | PROVIDERS: ATTEND Plastic Surgery | DX: T86.828 Other complications of skin graft (allograft) (autograft) (principal); Y83.8 Other surgical procedures as the cause of abnormal reaction of the patient, or of later complication, without mention of misadventure at the time of the procedure; L97.811 Non-pressure chronic ulcer of other part of right lower leg limited to breakdown of skin; I87.311 Chronic venous hypertension (idiopathic) with ulcer of right lower extremity; I87.2 Venous insufficiency (chronic) (peripheral); R60.0 Localized edema; G89.29 Other chronic pain; G47.33 Obstructive sleep apnea (adult) (pediatric); G25.81 Restless legs syndrome; E66.3 Overweight; E03.9 Hypothyroidism, unspecified; W18.09XA Striking against other object with subsequent fall, initial encounter ==

== ENCOUNTER → 2021-07-29 | Outpatient (CLI) | payer BC | LOC: WCC 13:40 | PROVIDERS: ATTEND Plastic Surgery | DX: T86.828 Other complications of skin graft (allograft) (autograft) (principal); Y83.8 Other surgical procedures as the cause of abnormal reaction of the patient, or of later complication, without mention of misadventure at the time of the procedure; I87.311 Chronic venous hypertension (idiopathic) with ulcer of right lower extremity; L97.811 Non-pressure chronic ulcer of other part of right lower leg limited to breakdown of skin; I87.2 Venous insufficiency (chronic) (peripheral); R60.0 Localized edema; G89.29 Other chronic pain; E03.9 Hypothyroidism, unspecified; G47.33 Obstructive sleep apnea (adult) (pediatric); G25.81 Restless legs syndrome; E66.3 Overweight; W18.09XA Striking against other object with subsequent fall, initial encounter ==

== ENCOUNTER → 2021-08-02 | Outpatient (CLI) | payer BC | LOC: WCC 09:02 | PROVIDERS: ATTEND Plastic Surgery | DX: T86.828 Other complications of skin graft (allograft) (autograft) (principal); Y83.8 Other surgical procedures as the cause of abnormal reaction of the patient, or of later complication, without mention of misadventure at the time of the procedure; L97.811 Non-pressure chronic ulcer of other part of right lower leg limited to breakdown of skin; I87.311 Chronic venous hypertension (idiopathic) with ulcer of right lower extremity; I87.2 Venous insufficiency (chronic) (peripheral); R60.0 Localized edema; G89.29 Other chronic pain; G47.33 Obstructive sleep apnea (adult) (pediatric); E03.9 Hypothyroidism, unspecified; G25.81 Restless legs syndrome; E66.3 Overweight; W18.09XA Striking against other object with subsequent fall, initial encounter ==

== ENCOUNTER → 2021-08-05 | Outpatient (CLI) | payer BC | LOC: WCC 09:32 | PROVIDERS: ATTEND Plastic Surgery | DX: T86.828 Other complications of skin graft (allograft) (autograft) (principal); Y83.8 Other surgical procedures as the cause of abnormal reaction of the patient, or of later complication, without mention of misadventure at the time of the procedure; I87.311 Chronic venous hypertension (idiopathic) with ulcer of right lower extremity; L97.811 Non-pressure chronic ulcer of other part of right lower leg limited to breakdown of skin; R60.0 Localized edema; W18.09XA Striking against other object with subsequent fall, initial encounter; G47.33 Obstructive sleep apnea (adult) (pediatric); I87.2 Venous insufficiency (chronic) (peripheral); G89.29 Other chronic pain; G25.81 Restless legs syndrome; E66.3 Overweight; E03.9 Hypothyroidism, unspecified ==

== ENCOUNTER → 2021-08-09 | Outpatient (CLI) | payer BC | LOC: WCC 09:07 | PROVIDERS: ATTEND Plastic Surgery | DX: T86.828 Other complications of skin graft (allograft) (autograft) (principal); Y83.8 Other surgical procedures as the cause of abnormal reaction of the patient, or of later complication, without mention of misadventure at the time of the procedure; I87.311 Chronic venous hypertension (idiopathic) with ulcer of right lower extremity; L97.811 Non-pressure chronic ulcer of other part of right lower leg limited to breakdown of skin; I87.2 Venous insufficiency (chronic) (peripheral); R60.0 Localized edema; G89.29 Other chronic pain; G47.33 Obstructive sleep apnea (adult) (pediatric); E03.9 Hypothyroidism, unspecified; G25.81 Restless legs syndrome; E66.3 Overweight; W18.09XA Striking against other object with subsequent fall, initial encounter ==

== ENCOUNTER → 2021-08-12 | Outpatient (CLI) | payer BC | LOC: WCC 14:23 | PROVIDERS: ATTEND Plastic Surgery | DX: T86.828 Other complications of skin graft (allograft) (autograft) (principal); Y83.8 Other surgical procedures as the cause of abnormal reaction of the patient, or of later complication, without mention of misadventure at the time of the procedure; I87.311 Chronic venous hypertension (idiopathic) with ulcer of right lower extremity; L97.811 Non-pressure chronic ulcer of other part of right lower leg limited to breakdown of skin; I87.2 Venous insufficiency (chronic) (peripheral); R60.0 Localized edema; G89.29 Other chronic pain; E03.9 Hypothyroidism, unspecified; G47.33 Obstructive sleep apnea (adult) (pediatric); G25.81 Restless legs syndrome; E66.3 Overweight; W18.09XA Striking against other object with subsequent fall, initial encounter ==

== ENCOUNTER → 2021-08-16 | Outpatient (CLI) | payer BC | LOC: WCC 11:09 | PROVIDERS: ATTEND Plastic Surgery | DX: T86.828 Other complications of skin graft (allograft) (autograft) (principal); Y83.8 Other surgical procedures as the cause of abnormal reaction of the patient, or of later complication, without mention of misadventure at the time of the procedure; I87.311 Chronic venous hypertension (idiopathic) with ulcer of right lower extremity; I87.331 Chronic venous hypertension (idiopathic) with ulcer and inflammation of right lower extremity; L97.811 Non-pressure chronic ulcer of other part of right lower leg limited to breakdown of skin; I87.2 Venous insufficiency (chronic) (peripheral); R60.0 Localized edema; G89.29 Other chronic pain; G47.33 Obstructive sleep apnea (adult) (pediatric); G25.81 Restless legs syndrome; E03.9 Hypothyroidism, unspecified; W18.09XA Striking against other object with subsequent fall, initial encounter; E66.3 Overweight ==

== ENCOUNTER → 2021-08-20 | Outpatient (CLI) | payer BC | LOC: WCC 16:15 | PROVIDERS: ATTEND Plastic Surgery | DX: T86.828 Other complications of skin graft (allograft) (autograft) (principal); Y83.8 Other surgical procedures as the cause of abnormal reaction of the patient, or of later complication, without mention of misadventure at the time of the procedure; I87.311 Chronic venous hypertension (idiopathic) with ulcer of right lower extremity; L97.811 Non-pressure chronic ulcer of other part of right lower leg limited to breakdown of skin; I87.2 Venous insufficiency (chronic) (peripheral); R60.0 Localized edema; G89.29 Other chronic pain; G47.33 Obstructive sleep apnea (adult) (pediatric); E03.9 Hypothyroidism, unspecified; G25.81 Restless legs syndrome; W18.09XA Striking against other object with subsequent fall, initial encounter; E66.3 Overweight ==

== ENCOUNTER → 2021-08-23 | Outpatient (CLI) | payer BC | LOC: WCC 08:25 | PROVIDERS: ATTEND Plastic Surgery | DX: T86.828 Other complications of skin graft (allograft) (autograft) (principal); Y83.8 Other surgical procedures as the cause of abnormal reaction of the patient, or of later complication, without mention of misadventure at the time of the procedure; L97.811 Non-pressure chronic ulcer of other part of right lower leg limited to breakdown of skin; I87.311 Chronic venous hypertension (idiopathic) with ulcer of right lower extremity; I87.2 Venous insufficiency (chronic) (peripheral); R60.0 Localized edema; G89.29 Other chronic pain; G47.33 Obstructive sleep apnea (adult) (pediatric); E03.9 Hypothyroidism, unspecified; G25.81 Restless legs syndrome; E66.3 Overweight; W18.09XA Striking against other object with subsequent fall, initial encounter ==

== ENCOUNTER → 2021-08-26 | Outpatient (CLI) | payer BC | LOC: WCC 14:43 | PROVIDERS: ATTEND Plastic Surgery | DX: T86.828 Other complications of skin graft (allograft) (autograft) (principal); Y83.8 Other surgical procedures as the cause of abnormal reaction of the patient, or of later complication, without mention of misadventure at the time of the procedure; L97.811 Non-pressure chronic ulcer of other part of right lower leg limited to breakdown of skin; I87.311 Chronic venous hypertension (idiopathic) with ulcer of right lower extremity; I87.2 Venous insufficiency (chronic) (peripheral); R60.0 Localized edema; G89.29 Other chronic pain; E03.9 Hypothyroidism, unspecified; G47.33 Obstructive sleep apnea (adult) (pediatric); G25.81 Restless legs syndrome; E66.3 Overweight; W18.09XA Striking against other object with subsequent fall, initial encounter ==

== ENCOUNTER → 2021-08-30 | Outpatient (CLI) | payer BC | LOC: WCC 11:24 | PROVIDERS: ATTEND Plastic Surgery | DX: T86.828 Other complications of skin graft (allograft) (autograft) (principal); Y83.8 Other surgical procedures as the cause of abnormal reaction of the patient, or of later complication, without mention of misadventure at the time of the procedure; L97.811 Non-pressure chronic ulcer of other part of right lower leg limited to breakdown of skin; I87.311 Chronic venous hypertension (idiopathic) with ulcer of right lower extremity; I87.2 Venous insufficiency (chronic) (peripheral); R60.0 Localized edema; G89.29 Other chronic pain; G47.33 Obstructive sleep apnea (adult) (pediatric); E03.9 Hypothyroidism, unspecified; G25.81 Restless legs syndrome; E66.3 Overweight; W18.09XA Striking against other object with subsequent fall, initial encounter ==

== ENCOUNTER → 2021-09-02 | Outpatient (CLI) | payer BC | LOC: WCC 11:09 | PROVIDERS: ATTEND Plastic Surgery | DX: T86.828 Other complications of skin graft (allograft) (autograft) (principal); Y83.8 Other surgical procedures as the cause of abnormal reaction of the patient, or of later complication, without mention of misadventure at the time of the procedure; I87.311 Chronic venous hypertension (idiopathic) with ulcer of right lower extremity; I87.332 Chronic venous hypertension (idiopathic) with ulcer and inflammation of left lower extremity; I87.331 Chronic venous hypertension (idiopathic) with ulcer and inflammation of right lower extremity; L97.811 Non-pressure chronic ulcer of other part of right lower leg limited to breakdown of skin; L97.821 Non-pressure chronic ulcer of other part of left lower leg limited to breakdown of skin; I87.2 Venous insufficiency (chronic) (peripheral); R60.0 Localized edema; G89.29 Other chronic pain; E03.9 Hypothyroidism, unspecified; G47.33 Obstructive sleep apnea (adult) (pediatric); G25.81 Restless legs syndrome; E66.3 Overweight; W18.09XA Striking against other object with subsequent fall, initial encounter ==

== ENCOUNTER → 2021-09-06 | Outpatient (CLI) | payer BC | LOC: WCC 14:58 | PROVIDERS: ATTEND Plastic Surgery | DX: I87.311 Chronic venous hypertension (idiopathic) with ulcer of right lower extremity (principal); I87.331 Chronic venous hypertension (idiopathic) with ulcer and inflammation of right lower extremity; I87.332 Chronic venous hypertension (idiopathic) with ulcer and inflammation of left lower extremity; L97.811 Non-pressure chronic ulcer of other part of right lower leg limited to breakdown of skin; L97.821 Non-pressure chronic ulcer of other part of left lower leg limited to breakdown of skin; Y83.8 Other surgical procedures as the cause of abnormal reaction of the patient, or of later complication, without mention of misadventure at the time of the procedure; I87.2 Venous insufficiency (chronic) (peripheral); R60.0 Localized edema; G89.29 Other chronic pain; G47.33 Obstructive sleep apnea (adult) (pediatric); E03.9 Hypothyroidism, unspecified; G25.81 Restless legs syndrome; E66.3 Overweight; W18.09XA Striking against other object with subsequent fall, initial encounter | CPT/HCPCS: 87071; 87075; 87186; 87205 ==

== ENCOUNTER → 2021-09-09 | Outpatient (CLI) | payer BC | LOC: WCC 11:24 | PROVIDERS: ATTEND Plastic Surgery | DX: I87.311 Chronic venous hypertension (idiopathic) with ulcer of right lower extremity (principal); Y83.8 Other surgical procedures as the cause of abnormal reaction of the patient, or of later complication, without mention of misadventure at the time of the procedure; L97.811 Non-pressure chronic ulcer of other part of right lower leg limited to breakdown of skin; L97.821 Non-pressure chronic ulcer of other part of left lower leg limited to breakdown of skin; I87.332 Chronic venous hypertension (idiopathic) with ulcer and inflammation of left lower extremity; I87.331 Chronic venous hypertension (idiopathic) with ulcer and inflammation of right lower extremity; I87.2 Venous insufficiency (chronic) (peripheral); R60.0 Localized edema; G89.29 Other chronic pain; G47.33 Obstructive sleep apnea (adult) (pediatric); E03.9 Hypothyroidism, unspecified; G25.81 Restless legs syndrome; W18.09XA Striking against other object with subsequent fall, initial encounter; E66.3 Overweight ==

== ENCOUNTER → 2021-09-13 | Outpatient (CLI) | payer BC | LOC: WCC 10:01 | PROVIDERS: ATTEND Plastic Surgery | DX: I87.311 Chronic venous hypertension (idiopathic) with ulcer of right lower extremity (principal); I87.332 Chronic venous hypertension (idiopathic) with ulcer and inflammation of left lower extremity; I87.331 Chronic venous hypertension (idiopathic) with ulcer and inflammation of right lower extremity; Y83.8 Other surgical procedures as the cause of abnormal reaction of the patient, or of later complication, without mention of misadventure at the time of the procedure; L97.811 Non-pressure chronic ulcer of other part of right lower leg limited to breakdown of skin; L97.821 Non-pressure chronic ulcer of other part of left lower leg limited to breakdown of skin; I87.2 Venous insufficiency (chronic) (peripheral); R60.0 Localized edema; G89.29 Other chronic pain; E03.9 Hypothyroidism, unspecified; G47.33 Obstructive sleep apnea (adult) (pediatric); G25.81 Restless legs syndrome; B96.89 Other specified bacterial agents as the cause of diseases classified elsewhere; B95.62 Methicillin resistant Staphylococcus aureus infection as the cause of diseases classified elsewhere; W18.09XA Striking against other object with subsequent fall, initial encounter; E66.3 Overweight ==

== ENCOUNTER → 2021-10-16 | Outpatient (RCR) | payer MEDICARE ==
[~2021-10-16] MED LIST changes: +COLLAGENASE OINTMENT 30 GM TUBE ONE; +LIDOCAINE VISC 2% SOLN 15 ML UDC ONE; +MINERAL OIL/PETROLAT/GLYCERI 6OZ BTL ONE
== END ==
LOC: WCC 09-16 15:18
PROVIDERS: ATTEND Internal Medicine Infectious Disease
DX: I87.331 Chronic venous hypertension (idiopathic) with ulcer and inflammation of right lower extremity (principal); Y83.8 Other surgical procedures as the cause of abnormal reaction of the patient, or of later complication, without mention of misadventure at the time of the procedure; I87.332 Chronic venous hypertension (idiopathic) with ulcer and inflammation of left lower extremity; L97.811 Non-pressure chronic ulcer of other part of right lower leg limited to breakdown of skin; L97.821 Non-pressure chronic ulcer of other part of left lower leg limited to breakdown of skin; I87.2 Venous insufficiency (chronic) (peripheral); I87.311 Chronic venous hypertension (idiopathic) with ulcer of right lower extremity; R60.0 Localized edema; G89.29 Other chronic pain; G47.33 Obstructive sleep apnea (adult) (pediatric); E03.9 Hypothyroidism, unspecified; G25.81 Restless legs syndrome; B95.62 Methicillin resistant Staphylococcus aureus infection as the cause of diseases classified elsewhere; B96.89 Other specified bacterial agents as the cause of diseases classified elsewhere; E66.3 Overweight; W18.09XA Striking against other object with subsequent fall, initial encounter

== ENCOUNTER → 2021-11-15 | Outpatient (RCR) | payer MEDICARE ==
[~2021-11-15] MED LIST changes: +LIDOCAINE HCL 2% LOCAL 20 ML VIAL ONE; +SILVER SULFADIAZINE 50GM CREAM ONE
== END ==
LOC: WCC 10-18 12:35
PROVIDERS: ATTEND Internal Medicine Infectious Disease
DX: I87.332 Chronic venous hypertension (idiopathic) with ulcer and inflammation of left lower extremity (principal); I87.331 Chronic venous hypertension (idiopathic) with ulcer and inflammation of right lower extremity; Y83.8 Other surgical procedures as the cause of abnormal reaction of the patient, or of later complication, without mention of misadventure at the time of the procedure; L97.821 Non-pressure chronic ulcer of other part of left lower leg limited to breakdown of skin; L97.811 Non-pressure chronic ulcer of other part of right lower leg limited to breakdown of skin; I87.2 Venous insufficiency (chronic) (peripheral); R60.0 Localized edema; G89.29 Other chronic pain; E03.9 Hypothyroidism, unspecified; G47.33 Obstructive sleep apnea (adult) (pediatric); G25.81 Restless legs syndrome; E66.3 Overweight; W18.09XA Striking against other object with subsequent fall, initial encounter
CPT/HCPCS: 29581 ×12; 97602 ×5; 99213 ×9; J2001

== ENCOUNTER → 2021-12-16 | Outpatient (RCR) | payer MEDICARE ==
[~2021-12-16] MED LIST changes: -LIDOCAINE HCL 2% LOCAL 20 ML VIAL ONE; +MUPIROCIN 2% OINT 22 GM TUBE ONE; -SILVER SULFADIAZINE 50GM CREAM ONE
== END ==
LOC: WCC 11-18 14:55
PROVIDERS: ATTEND Internal Medicine Infectious Disease
DX: I87.331 Chronic venous hypertension (idiopathic) with ulcer and inflammation of right lower extremity (principal); Y83.8 Other surgical procedures as the cause of abnormal reaction of the patient, or of later complication, without mention of misadventure at the time of the procedure; L97.811 Non-pressure chronic ulcer of other part of right lower leg limited to breakdown of skin; L97.821 Non-pressure chronic ulcer of other part of left lower leg limited to breakdown of skin; I87.332 Chronic venous hypertension (idiopathic) with ulcer and inflammation of left lower extremity; I87.2 Venous insufficiency (chronic) (peripheral); R60.0 Localized edema; G89.29 Other chronic pain; G47.33 Obstructive sleep apnea (adult) (pediatric); E03.9 Hypothyroidism, unspecified; E66.3 Overweight; G25.81 Restless legs syndrome; W18.09XA Striking against other object with subsequent fall, initial encounter

== ENCOUNTER → 2022-01-15 | Outpatient (RCR) | payer MEDICARE ==
[~2022-01-15] MED LIST changes: +MINERAL OIL/PETROLAT/GLYCERI 2OZ CRM ONE; -MUPIROCIN 2% OINT 22 GM TUBE ONE; +TRYPSIN/BALSAM PERU/CASTOR OIL ONE
== END ==
LOC: WCC 12-18 08:27
PROVIDERS: ATTEND Internal Medicine Infectious Disease
DX: I87.332 Chronic venous hypertension (idiopathic) with ulcer and inflammation of left lower extremity (principal); Y83.8 Other surgical procedures as the cause of abnormal reaction of the patient, or of later complication, without mention of misadventure at the time of the procedure; L97.821 Non-pressure chronic ulcer of other part of left lower leg limited to breakdown of skin; I87.331 Chronic venous hypertension (idiopathic) with ulcer and inflammation of right lower extremity; L97.811 Non-pressure chronic ulcer of other part of right lower leg limited to breakdown of skin; I87.2 Venous insufficiency (chronic) (peripheral); I89.0 Lymphedema, not elsewhere classified; R60.0 Localized edema; G89.29 Other chronic pain; E03.9 Hypothyroidism, unspecified; G47.33 Obstructive sleep apnea (adult) (pediatric); G25.81 Restless legs syndrome; E66.3 Overweight; W18.09XA Striking against other object with subsequent fall, initial encounter
CPT/HCPCS: 11042; 11045; 15271; 15272; 29581 ×13; 84134; 97602 ×2; 99213 ×12; Q4121

== ENCOUNTER 2022-03-17 13:08 | Outpatient (RCR) | payer MEDICARE ==
[2022-03-07 13:05] LABS: BASOPHILS % 0.4 % (0.0-1.0); EOSINOPHILS # (AUTO) 0.3 (0.0-0.4); EOSINOPHILS % 3.5 % (0.0-6.0); HEMATOCRIT 52.8 % (38.2-49.6); LYMPHOCYTES # (AUTO) 2.3 (1.0-3.2); MEAN CORPUSCULAR HEMOGLOBIN 30.4 pg (28-32); MEAN CORPUSCULAR HGB CONC 30.3 g/dL (31-35); MEAN CORPUSCULAR VOLUME 100.2 fL (81-99); MONOCYTES # (AUTO) 0.9 (0.2-0.8); MONOCYTES % 10.7 % (4.4-11.3); NEUTROPHILS # (AUTO) 4.5 (2.1-6.9); NEUTROPHILS % 56.2 % (38.7-80.0); PLATELET COUNT 276 x10e3/uL (140-360); RED BLOOD COUNT 5.27 x10e6/uL (4.3-5.7); RED CELL DISTRIBUTION WIDTH 13.7 % (11.7-14.4)
[2022-03-07 13:17] LABS: CREATININE, SERUM 0.8 mg/dL (0.72-1.25)
[~2022-03-17 13:08] MED LIST changes: -COLLAGENASE OINTMENT 30 GM TUBE ONE; -MINERAL OIL/PETROLAT/GLYCERI 2OZ CRM ONE; +SILVER SULFADIAZINE 50GM CREAM ONE; +TRIAMCINOLONE ACET 0.1% CREAM 15 GM TUBE ONE; -TRYPSIN/BALSAM PERU/CASTOR OIL ONE
== END 2022-03-18 ==
LOC: WCC 13:08
PROVIDERS: ATTEND Internal Medicine Infectious Disease
DX: I87.332 Chronic venous hypertension (idiopathic) with ulcer and inflammation of left lower extremity (principal); L97.821 Non-pressure chronic ulcer of other part of left lower leg limited to breakdown of skin; I87.331 Chronic venous hypertension (idiopathic) with ulcer and inflammation of right lower extremity; L97.811 Non-pressure chronic ulcer of other part of right lower leg limited to breakdown of skin; I87.2 Venous insufficiency (chronic) (peripheral); I89.0 Lymphedema, not elsewhere classified; R60.0 Localized edema; G89.29 Other chronic pain; G47.33 Obstructive sleep apnea (adult) (pediatric); E03.9 Hypothyroidism, unspecified; G25.81 Restless legs syndrome; W18.09XA Striking against other object with subsequent fall, initial encounter; Y83.8 Other surgical procedures as the cause of abnormal reaction of the patient, or of later complication, without mention of misadventure at the time of the procedure; E66.3 Overweight
CPT/HCPCS: 11042; 11045; 15271; 15272; 17250; 29581 ×11; 36415; 82565; 84520; 85025; 99213 ×11; Q4121

== ENCOUNTER 2022-04-14 14:16 | Outpatient (RCR) | payer MEDICARE ==
[~2022-04-14 14:16] MED LIST changes: +LIDOCAINE/PRILOCAINE 2.5-2.5% KIT ONE; -SILVER SULFADIAZINE 50GM CREAM ONE
== END 2022-04-15 ==
LOC: WCC 14:16
PROVIDERS: ATTEND Internal Medicine Infectious Disease
DX: R60.0 Localized edema (principal)
CPT/HCPCS: 15271 ×2; 15272 ×2; 29581 ×12; 99213 ×12; Q4121 ×2

== ENCOUNTER 2022-06-13 10:09 | Outpatient (RCR) | payer MEDICARE ==
[2022-06-13] MEDS ORDERED: MINERAL OIL/PETROLAT/GLYCERI 6OZ BTL ONE (12:43)
== END 2022-06-15 ==
LOC: WCC 10:09
PROVIDERS: ATTEND Internal Medicine Infectious Disease
DX: I70.261 Atherosclerosis of native arteries of extremities with gangrene, right leg (principal); L97.811 Non-pressure chronic ulcer of other part of right lower leg limited to breakdown of skin; I89.0 Lymphedema, not elsewhere classified

== ENCOUNTER 2022-07-11 08:07 | Outpatient (RCR) | payer MEDICARE ==
[~2022-07-11 08:07] MED LIST changes: +COLLAGENASE OINTMENT 30 GM TUBE ONE; -LIDOCAINE/PRILOCAINE 2.5-2.5% KIT ONE
[2022-07-11] MEDS ORDERED: MINERAL OIL/PETROLAT/GLYCERI 6OZ BTL ONE (13:40)
[2022-07-11] MEDS ORDERED: TRIAMCINOLONE ACET 0.1% CREAM 15 GM TUBE ONE (13:40)
== END 2022-07-16 ==
LOC: WCC 08:07
PROVIDERS: ATTEND Internal Medicine Infectious Disease
DX: I70.261 Atherosclerosis of native arteries of extremities with gangrene, right leg (principal); L97.811 Non-pressure chronic ulcer of other part of right lower leg limited to breakdown of skin; R60.0 Localized edema

== ENCOUNTER → 2022-08-15 | Outpatient (RCR) | payer MEDICARE ==
[~2022-08-15] MED LIST changes: -COLLAGENASE OINTMENT 30 GM TUBE ONE; -LIDOCAINE VISC 2% SOLN 15 ML UDC ONE
== END ==
LOC: WCC 07-18 09:01
PROVIDERS: ATTEND Internal Medicine Infectious Disease
DX: I70.261 Atherosclerosis of native arteries of extremities with gangrene, right leg (principal); L97.811 Non-pressure chronic ulcer of other part of right lower leg limited to breakdown of skin; R60.0 Localized edema

== ENCOUNTER 2022-12-01 10:06 | Outpatient (RCR) | payer MEDICARE ==
[~2022-12-01 10:06] MED LIST changes: +MUPIROCIN 2% OINT 22 GM TUBE ONE
[2022-12-01] MEDS ORDERED: MINERAL OIL/PETROLAT/GLYCERI 6OZ BTL ONE (11:51)
== END 2022-12-16 ==
LOC: WCC 10:06
PROVIDERS: ATTEND Internal Medicine Infectious Disease
DX: I70.261 Atherosclerosis of native arteries of extremities with gangrene, right leg (principal); L97.811 Non-pressure chronic ulcer of other part of right lower leg limited to breakdown of skin; R60.0 Localized edema

== ENCOUNTER 2023-06-15 09:47 | Outpatient (RCR) | payer MEDICARE ==
[~2023-06-15 09:47] MED LIST changes: +LIDOCAINE VISC 2% SOLN 15 ML UDC ONE; -MUPIROCIN 2% OINT 22 GM TUBE ONE; +SILVER SULFADIAZINE 50GM CREAM ONE
[2023-06-15] MEDS ORDERED: LIDOCAINE/PRILOCAINE 2.5-2.5% KIT ONE (12:18)
[2023-06-15] MEDS ORDERED: MINERAL OIL/PETROLAT/GLYCERI 6OZ BTL ONE (12:18)
== END 2023-06-16 ==
LOC: WCC 09:47
PROVIDERS: ATTEND Internal Medicine Infectious Disease
DX: I87.311 Chronic venous hypertension (idiopathic) with ulcer of right lower extremity (principal); L97.811 Non-pressure chronic ulcer of other part of right lower leg limited to breakdown of skin; R60.0 Localized edema

== ENCOUNTER 2023-08-14 08:00 | Outpatient (RCR) | payer MEDICARE ==
[~2023-08-14 08:00] MED LIST changes: +LIDOCAINE/PRILOCAINE 2.5-2.5% KIT ONE; -SILVER SULFADIAZINE 50GM CREAM ONE
[2023-08-14] MEDS ORDERED: MINERAL OIL/PETROLAT/GLYCERI 6OZ BTL ONE (12:48)
== END 2023-08-14 11:05 | disposition home or self-care (01) ==
LOC: WCC 08:00
PROVIDERS: ATTEND Internal Medicine Infectious Disease
DX: I87.311 Chronic venous hypertension (idiopathic) with ulcer of right lower extremity (principal); L97.811 Non-pressure chronic ulcer of other part of right lower leg limited to breakdown of skin; R60.0 Localized edema
CPT/HCPCS: 36415; 82948

== ENCOUNTER → 2023-08-31 15:06 | Outpatient (RCR) | payer MEDICARE ==
[~2023-08-31 15:06] MED LIST changes: -LIDOCAINE/PRILOCAINE 2.5-2.5% KIT ONE; +MUPIROCIN 2% OINT 22 GM TUBE ONE
== END | disposition home or self-care (01) ==
LOC: WCC 08-17 08:00
PROVIDERS: ATTEND Internal Medicine Infectious Disease
DX: I87.311 Chronic venous hypertension (idiopathic) with ulcer of right lower extremity (principal); L97.811 Non-pressure chronic ulcer of other part of right lower leg limited to breakdown of skin; R60.0 Localized edema